=== PATIENT | female | born 1960 | race Caucasian/White ===

== ENCOUNTER → 2017-08-12 16:40 | Outpatient (CLI) | payer BC, SELFPAY ==
--- NOTE | 2017-08-12 16:47 | RAD_ITS ---
XR Spine Cervical 4 or 5 Views INDICATION: No known injury. Pain in entire neck for a few weeks down into both shoulders. COMPARISON: None TECHNIQUE: 5 views of the cervical spine FINDINGS: There is mild straightening of the cervical spine which could be positional. Height of the vertebral bodies is preserved. Disc space at the C5-6 level appears decreased. Neuroforamina appear patent. Prevertebral soft tissue stripe is within normal limits. There is normal alignment at the atlantoaxial articulation. RAD/Cerv Spine 4 or 5 Views IMPRESSION: Findings suggestive of mild degenerative disc disease at C5-C6. Consider further evaluation with MRI if clinical symptoms persist. at 2156 Reported and signed by: Alycia Mchugh MD Electronically Signed: Alycia Mchugh MD at 21:55 EDT Tel , Service support ,
== END ==
LOC: MTRAD 16:45
PROVIDERS: Family Provider Family Medicine; PCP Family Medicine; Visit Provider Family Medicine
DX: S46.819A Strain of other muscles, fascia and tendons at shoulder and upper arm level, unspecified arm, initial encounter (principal); X58.XXXA Exposure to other specified factors, initial encounter; Y93.9 Activity, unspecified; Y92.9 Unspecified place or not applicable; Y99.9 Unspecified external cause status
CPT/HCPCS: 72050

== ENCOUNTER → 2018-05-27 17:51 | Outpatient (CLI) | payer BC, SELFPAY ==
[2018-05-27 17:53] LABS: Mucous, Urine 0 SEEN /hpf (<or=2+)
[2018-05-27 18:50] LABS: Color, Urine Yellow (Yellow); Glucose, Dipstick Normal (Normal); Ketone-Dipstick Negative (Negative); Leukocyte Esterase-Dipstick 500 /ul (Negative); Nitrite-Dipstick Negative (Negative); Occult Blood-Urine 25 /ul (Negative); Protein-Dipstick Negative (Negative); Urine Bilirubin Dipstick Negative (Negative); Urine Clarity Clear (Clear); Urine Urobilinogen Normal (Normal)
[2018-05-27 19:09] LABS: Bacteria RARE /hpf (None Seen); Red Blood Cells-Urine 0-5 SEEN /hpf (0-5); Squamous Epithelial Cells - UA 0-5 SEEN /hpf (5-10); White Blood Cells 5-10 SEEN /hpf (0-5)
== END ==
PROVIDERS: Family Provider Family Medicine; PCP Family Medicine; Referring Provider Nurse Practitioner Family; Visit Provider Nurse Practitioner Family
DX: R35.0 Frequency of micturition (principal)
CPT/HCPCS: 81001; 87077; 87086; 87088

== ENCOUNTER → 2018-06-14 10:13 | Outpatient (CLI) | payer BC, SELFPAY ==
--- NOTE | 2018-06-14 10:17 | RAD_ITS ---
STUDY: X-RAY - RIGHT KNEE REASON FOR EXAM: Female, 57 years old. Knee pain. Status post fall last month. TECHNIQUE: 3 view(s) of the knee. COMPARISON: None. FINDINGS: Normal visualized distal femur. Normal visualized proximal tibia and fibula. Normal proximal tibiofibular articulation. Normal medial femorotibial compartment. Normal lateral femorotibial compartment. Normal patellofemoral articulation. The soft tissue structures are unremarkable. RAD/Knee 3 Views IMPRESSION: Within normal limits x-ray examination of the knee. Electronically Signed: Jackelyn Wilcox MD at 16:52 EDT Tel , Service support ,
== END ==
LOC: MTRAD 10:16
PROVIDERS: Family Provider Family Medicine; PCP Family Medicine; Referring Provider Nurse Practitioner Family; Visit Provider Nurse Practitioner Family
DX: M25.561 Pain in right knee (principal)
CPT/HCPCS: 73562

== ENCOUNTER → 2018-06-18 10:08 | Outpatient (CLI) | payer BC, SELFPAY ==
[2018-06-18 10:51] LABS: Anion Gap 4 (5-15); BUN 12 mg/dL (7-18); BUN/Creat Ratio 16.9 RATIO (10-20); Calcium,Total 8.8 mg/dL (8.5-10.1); Chloride 106 mmol/L (98-107); Cholesterol 257 mg/dL (200); Creatinine, Serum 0.71 mg/dL (0.55-1.02); EST Glomerular Filtration Rate 91 mL/min (>60); Est Glom Filt Rate - Afr Amer 110 mL/min (>60); Glucose 92 mg/dL (74-106); High Density Lipoprotein 60 mg/dL; Potassium 4.1 mmol/L (3.5-5.1); Sodium Level 140 mmol/L (136-145); Triglycerides 102 mg/dL; Very Low Density Lipoprotein 20 mg/dL (5-40)
--- NOTE | 2018-06-18 11:13 | BI_ITS ---
MAMMOGRAPHY - BILATERAL SCREENING 3-D JAME SYNTHESIS REASON FOR EXAM: Female, 57 years old. Bilateral Screening 3-D tomosynthesis PERTINENT HISTORY: No significant family history. TECHNIQUE: 2-D mammograms and 3-D Jame synthesis of the breast (s) were performed. CAD was performed. COMPARISON: April 10, 2010 FINDINGS: The breast composition is heterogeneously dense that can obscure small breast masses. Scattered benign calcifications are seen. No dense spiculated masses or suspicious microcalcifications are identified. No architectural distortion is identified. There is no skin thickening or retraction. There has been no significant change since the prior study. BI/SCREENING MAMM (CAD), BILAT IMPRESSION: No mammographic signs of malignancy. Routine yearly mammograms recommended. ASSESSMENT CATEGORY: BIRADS Category 2: Benign. A letter regarding these results will be sent to the patient by the facility within 30 days. FOLLOW UP RECOMMENDATION: Yearly follow up mammogram recommended. (A) Approximately 10% of breast cancers are not detected by mammography. A normal mammogram should not delay biopsy of a clinically suspicious abnormality. Electronically Signed: Yobany Quiros MD at 17:37 EDT , Service support ,
== END ==
PROVIDERS: Family Provider Family Medicine; PCP Family Medicine; Referring Provider Nurse Practitioner Family; Visit Provider Nurse Practitioner Family
DX: Z12.31 Encounter for screening mammogram for malignant neoplasm of breast (principal); Z13.220 Encounter for screening for lipoid disorders
CPT/HCPCS: 36415; 77063; 77067; 80048; 80061

== ENCOUNTER → 2018-09-14 | Outpatient (CLI) | payer BC, SELFPAY | END | disposition home or self-care (01) | LOC: LABSPEC 15:16 | PROVIDERS: Referring Provider Family Medicine; Visit Provider Family Medicine | DX: R35.0 Frequency of micturition (principal) | CPT/HCPCS: 87077; 87086; 87088; 87186 ==

== ENCOUNTER → 2018-10-20 09:28 | Outpatient (CLI) | payer BC, SELFPAY ==
[2018-10-20 10:55] LABS: Cholesterol 180 mg/dL (200); High Density Lipoprotein 62 mg/dL; Triglycerides 76 mg/dL; Very Low Density Lipoprotein 15 mg/dL (5-40)
== END ==
PROVIDERS: Family Provider Family Medicine; PCP Family Medicine; Referring Provider Family Medicine; Visit Provider Family Medicine
DX: E78.5 Hyperlipidemia, unspecified (principal); R35.0 Frequency of micturition
CPT/HCPCS: 36415; 80061; 87077; 87086; 87088; 87186

== ENCOUNTER 2019-02-15 07:05 | Day surgery (SDC) | payer BC, SELFPAY ==
[2019-02-15 07:35] VITALS: BP 105/67; PULSE 77; RESP 18; TEMP 37.1; O2SAT 98; BMI 20.9
[2019-02-15] MEDS: Lactated Ringers 1,000 ML 100 ML IV (07:46)
[2019-02-15] MEDS: Vancomycin IV 1,000 MG/200 ML BAG 200 MG IV (07:52)
--- NOTE | 2019-02-15 09:00 | RAD_ITS ---
STUDY: X-RAY - PELVIS REASON FOR EXAM: Female, 58 years old. InterStim therapy. TECHNIQUE: One view of the pelvis was obtained. COMPARISON: None. FINDINGS: Intraoperative fluoroscopic imaging provided for InterStim therapy. RAD/Pelvis 1 or 2 Views IMPRESSION: Fluoroscopic services provided for InterStim therapy Electronically Signed: Jim Sharma, at 13:14 EST , Service support ,
[2019-02-15 10:14] VITALS: BP 105/67; BP 117/53; PULSE 88; RESP 16; TEMP 36.7; O2SAT 100
[2019-02-15 10:15] VITALS: BP 105/67; BP 107/57; PULSE 82; RESP 16; O2SAT 100
--- NOTE | 2019-02-15 10:19 | PCM.OPRPT ---
Problem List (1) Urinary urgency Status: Acute (2) Urinary frequency Status: Acute (3) Nocturia Status: Acute (4) Straining to void Status: Acute Report of Operation Date of Procedure: 02/15/19 Pre-Operative Diagnosis: uinary hesitancy, urgency and frequency Post-Operative Diagnosis: same Surgery/Procedure Performed:: Interstim Stage 1 Description of Surgical Findings:: good response on all 4 leads. lead is in the right side, pocket on right side Type of Anesthesia:: MAC Specimen's removed: none Estimated Blood Loss (mL): 5cc Description of Procedure: The patient is a 58-year-old female who underwent urodynamics and office cystoscopy in preparation for intervention for straining to void, urinary urgency and frequency, nocturia. After all testing was completed, options were discussed and she agreed to proceed with an InterStim stage I trial under anesthesia. Informed consent was obtained. Was taken to the operating room and placed in a prone position on the operating room table. Anesthesia monitored the head, neck, airway, IV access and vital signs throughout the case. Once anesthesia was appropriately administered she was prepped and draped in usual sterile fashion. Using fluoroscopic visualization the S3 foramen was identified and AP and lateral view. Local anesthetic was used and the needle was passed through the S3 foramen on the patient's right side. Good response was obtained with both giovani and toe flexion. The guidewire was passed and the needle removed. An incision was made around the guidewire. The dilator was then inserted followed by the lead. All 4 leads received good response with giovani and toe flexion. The lead was left in this position. It was then tunneled to a pocket site defined on the patient's right buttocks. The spot was infiltrated with lidocaine with epinephrine and an incision was made. The pocket was opened using Bovie cautery and blunt dissection. Hemostasis is obtained using Bovie cautery. The lead was then tunneled into the pocket site. It was clean and dried and inserted into the lead extension and secured using the torque wrench. The boot which had been applied was then closed with Prolene suture. The lead extension was then tunneled in a cephalad position. The incisions were closed using 3-0 interrupted Vicryl followed by 4-0 subcuticular Vicryl and then Dermabond. The lead extension was inserted into the temporary battery and this was all secured to the patient's back using Tegaderm followed by tape. There were no complications during the procedure. The patient was then awakened taken to the recovery room in good condition. Grafts/Implants Used: Interstim Lead and extension - Complications none - Admit VTE Documentation VTE Present on Admission: No VTE Mechan Device Prophylaxis: None VTE Pharm Prophylaxis ordered?: No Reason prophylaxis not ordered:: Treatment Not Indicated
--- NOTE | 2019-02-15 10:23 | DCINST_ITS ---
Discharge Diet: No Restrictions Discharge Activity: May not drive while taking narcotic pain medications., May Not Shower Call your doctor if you observe: Fever of 101 or Higher, Inability to urinate, Shortness of breath, Chest pain, Calf discomfort Allergies/Adverse Reactions: Allergies No Known Allergies Allergy (Verified 02/15/19 07:34) Medications to take at Discharge Aspirin 325 mg PO Q4H PRN PRN 05/11/14 Naproxen [Naprosyn] 500 mg PO PRN PRN 04/20/16 Atorvastatin Calcium [Lipitor] 20 mg PO QHS 02/09/19 Cephalexin [Keflex] 500 mg PO Q12 3 Days #6 cap 02/15/19 Oxycodone HCl/Acetaminophen [Percocet 5/325] 1 tab PO Q6H PRN PRN 7 Days #20 tab 02/15/19 The following prescriptions were given: Cephalexin [Keflex] 500 mg PO Q12 3 Days #6 cap Prescription Printed Oxycodone HCl/Acetaminophen [Percocet 5/325] 1 tab PO Q6H PRN PRN 7 Days #20 tab PRN Reason: Pain Prescription Printed Primary Care Physician: Tai Cabral MD [Primary Care Provider] - Test Results: Test results from this visit will be discussed in further detail at your follow- up appointment, if applicable. Please Follow Up With: Mary Kate Jose MD When: call office for appt Proposed Discharge Date: 02/15/19
[2019-02-15 10:30] VITALS: BP 105/67; BP 90/42; PULSE 69; RESP 16; O2SAT 94
[2019-02-15 10:42] VITALS: BP 105/67; BP 98/66; PULSE 63; RESP 16; TEMP 36.8; O2SAT 100
[2019-02-15 11:10] VITALS: BP 105/67
== END 2019-02-15 11:17 | disposition home or self-care (01) ==
LOC: SDC 07:09 → AC 07:09
PROVIDERS: Family Provider Family Medicine; PCP Family Medicine; Referring Provider Urology; Visit Provider Urology
PROC: (CPT 64581; principal; 2019-02-15 09:10)
DX: R39.15 Urgency of urination (principal); R35.0 Frequency of micturition; R35.1 Nocturia; R39.16 Straining to void; E78.00 Pure hypercholesterolemia, unspecified; K21.9 Gastro-esophageal reflux disease without esophagitis; Z79.899 Other long term (current) drug therapy; Z79.82 Long term (current) use of aspirin; F17.200 Nicotine dependence, unspecified, uncomplicated
CPT/HCPCS: 00630; 64581; 72170; 76000; J7120; C1778

== ENCOUNTER 2019-03-01 05:36 | Day surgery (SDC) | payer BC, SELFPAY ==
[2019-03-01 06:18] VITALS: BP 102/65; PULSE 74; RESP 15; TEMP 36; O2SAT 98; BMI 20.9
[2019-03-01] MEDS: Lactated Ringers 1,000 ML 100 ML IV (06:30)
[2019-03-01] MEDS: Vancomycin IV 1,000 MG/200 ML BAG 200 MG IV (06:31)
[2019-03-01 08:23] VITALS: BP 102/65; BP 93/65; PULSE 67; RESP 14; TEMP 36.6; O2SAT 98
[2019-03-01 08:26] VITALS: BP 102/65; BP 86/61; PULSE 62; RESP 14; O2SAT 100
--- NOTE | 2019-03-01 08:27 | DCINST_ITS ---
Discharge Diet: No Restrictions Discharge Activity: May not drive while taking narcotic pain medications., May Shower Call your doctor if your incision/area has: Continuous Slow Oozing, Sudden Increased Bleeding, Increased Redness, Foul Smelling Discharge Call your doctor if you observe: Fever of 101 or Higher, Inability to urinate, Shortness of breath, Chest pain, Calf discomfort, Uncontrolled pain Allergies/Adverse Reactions: Allergies No Known Allergies Allergy (Verified 03/01/19 06:17) Medications to take at Discharge Aspirin 325 mg PO Q4H PRN PRN 05/11/14 Naproxen [Naprosyn] 500 mg PO PRN PRN 04/20/16 Atorvastatin Calcium [Lipitor] 20 mg PO QHS 02/09/19 Primary Care Physician: Tai Cabral MD [Primary Care Provider] - Test Results: Test results from this visit will be discussed in further detail at your follow- up appointment, if applicable. Please Follow Up With: Mary Kate Jose MD When: 2 weeks, call for appt Proposed Discharge Date: 03/01/19
--- NOTE | 2019-03-01 08:29 | PCM.OPRPT ---
Problem List (1) Urinary urgency Status: Acute (2) Urinary frequency Status: Acute (3) Hesitancy of micturition Status: Acute (4) Nocturia Status: Acute (5) Straining to void Status: Acute Report of Operation Date of Procedure: 03/01/19 Pre-Operative Diagnosis: Urinary urgency, frequency, hesitancy, straining to void and nocturia Post-Operative Diagnosis: same Surgery/Procedure Performed:: Interstim Stage 2 Type of Anesthesia:: MAC Estimated Blood Loss (mL): 3cc Description of Procedure: Samanta is a 58-year-old female who underwent an InterStim stage I 2 weeks ago. She has had successful resolution of her urgency, frequency and difficulty with urinary hesitancy and straining to void. She now presents for implantation of her IPG. Informed consent was obtained. The patient was taken to the operating room and placed on the operating room table in a prone position. Anesthesia monitored the head, neck, airway, IV access and vital signs throughout the case. The patient was appropriately secured to the table and padded in dependent areas. The tape from her stage I was removed and the lead extension was grasped with hemostat and the temporary battery was cut. She was prepped and draped in usual sterile fashion. The pocket site was anesthetized with 1% lidocaine. The incision was opened and the boot was brought into the field. The Prolene sutures were cut and the boot was removed. The lead was removed from the lead extension using the torque wrench. The pocket site was enlarged using Bovie cautery and blunt dissection. Hemostasis was obtained. The lead was inserted into the IPG and screwed into position using the torque wrench. The IPG was then placed into the pocket site and tested for impedances. The incision was then closed using 3-0 interrupted Vicryl followed by 4-0 subcuticular Vicryl suturing. Dermabond was placed on the skin. The patient was then awakened and taken to the recovery room in good condition. There were no complications during the procedure. Grafts/Implants Used: Interstim IPG - Complications none - Admit VTE Documentation VTE Present on Admission: Yes VTE Mechan Device Prophylaxis: SCD's VTE Pharm Prophylaxis ordered?: No Reason prophylaxis not ordered:: Treatment Not Indicated
[2019-03-01 08:31] VITALS: BP 102/65; BP 93/62; PULSE 71; RESP 14; O2SAT 100
[2019-03-01 08:36] VITALS: BP 102/65; BP 93/55; PULSE 67; RESP 14; TEMP 36.4; O2SAT 100
[2019-03-01 09:54] VITALS: BP 102/65
== END 2019-03-01 09:57 | disposition home or self-care (01) ==
LOC: SDC 05:38 → AC 05:38
PROVIDERS: Family Provider Family Medicine; PCP Family Medicine; Referring Provider Urology; Visit Provider Urology
PROC: (CPT 64590; principal; 2019-03-01 07:20)
DX: R39.15 Urgency of urination (principal); F17.200 Nicotine dependence, unspecified, uncomplicated; R39.11 Hesitancy of micturition; R35.1 Nocturia; R39.16 Straining to void; R35.0 Frequency of micturition; E78.00 Pure hypercholesterolemia, unspecified; K21.9 Gastro-esophageal reflux disease without esophagitis; Z78.0 Asymptomatic menopausal state; Z79.82 Long term (current) use of aspirin; Z79.3 Long term (current) use of hormonal contraceptives; Z79.1 Long term (current) use of non-steroidal anti-inflammatories (NSAID); Z79.899 Other long term (current) drug therapy
CPT/HCPCS: 00300; 64590; J7120; C1767

== ENCOUNTER 2022-05-14 09:01 | Emergency (ER) | payer OTHER, SELFPAY ==
[2022-05-14 09:03] VITALS: BP 131/77; PULSE 81; RESP 16; TEMP 36.2; O2SAT 94; BMI 21.7
--- NOTE | 2022-05-14 09:17 | EDS_ITS ---
HPI History of Present Illness Chief Complaint: Shortness of Breath Informant: patient Onset/Context/Timing Onset: Days Context: gradual Timing: Intermittent Current Severity: Gone Maximum Severity: Mild Worsened by: Exertion and Coughing Relieved by: Nothing Associated Symptoms cough Chest Pain: Positive for Intermittent and Dull Narrative Narrative: [id number] female missing a past medical history. States since May 08 she has had intermittent episodes of shortness of breath primarily were occurring in the morning. However 2 nights ago she was coughing and felt short of breath at that time. Nonproductive cough. No fever or chills. No leg pain or swelling. Recently did travel back and forth from [place]. Denies any leg pain or swelling. No prior history of DVT or PE. No hemoptysis. No pleuritic chest pain. At times she gets some dull ache in her chest not really associated with exertion. She really denies any significant exertional chest pain or exertional dyspnea. She does have a fpc history of smoking about half pack a day for probably 40 years. Denies any history of COPD. Reactive history. PE Risk Factors: Negative for Cancer, OCP + Smoking + > 35, Prior DVT or PE, Recent immobilization or Recent surgery Prior similar symptoms: No Recent Illness/Hospitalization: No PFSH PFSH Medical History no medical history no medical history Home Medications aspirin 325 mg tablet 325 mg PO Q4H PRN PRN Pain 05/11/14 [History Last Taken 02/14/19] naproxen 500 mg tablet 500 mg PO PRN PRN Pain 04/20/16 [History Last Taken 02/14/19] atorvastatin 20 mg tablet 20 mg PO QHS 02/09/19 [History Last Taken 02/14/19] albuterol sulfate 90 mcg/actuation aerosol inhaler (ProAir HFA) 2 puff inhalation Q6H PRN shortness of breath or wheezing #6.7 grams 05/14/22 [Rx Last Taken Unknown] prednisone 20 mg tablet 40 mg PO DAILY 5 days #10 tabs 05/14/22 [Rx Last Taken Unknown] Allergy/AdvReac Type Severity Reaction Status Date / Time No Known Allergies Allergy Verified 05/14/22 09:02 Social History Smoking Status: Current every day smoker ROS ROS ED ROS Narrative Intermittent shortness of breath. Review of Systems ROS Unobtainable: Denies due to encephalopathy Constitutional Constitutional ED: Denies chills or fever(s) Eyes Eyes: Denies blurry vision ENT ENT ED: Denies ear pain Cardiovascular Cardiovascular: Denies chest pain, orthopnea or paroxysmal nocturnal dyspnea Respiratory/Chest Respiratory/Chest: Reports cough and dyspnea; Denies dyspnea on exertion, orthopnea or paroxysmal nocturnal dyspnea Gastrointestinal Gastrointestinal: Denies abdominal pain, constipation, diarrhea, melena, nausea or vomiting Genitourinary Genitourinary ED: Denies dysuria Musculoskeletal Musculoskeletal: Denies arthralgias Integumentary Denies abscess Neurologic Neurologic: Denies headache(s) Psychiatric Psychiatric: Denies anxiety Endocrine Endocrinology: Denies cold intolerance Hematologic/Lymphatic Hematologic/Lymphatic: Denies easy bleeding Allergic/Immunologic Allergic/Immunologic ED: Denies mouth swelling or tongue swelling EXAM Physical Exam Narrative Exam Narrative: 61-year-old female no acute distress. Vital signs stable afebrile. Clinically looks well. Pulse ox 94% on room air no hypoxia. H EENT exam unremarkable. Neck nontender no JVD no lymphadenopathy. Lungs clear to auscultation bilaterally. No rales rhonchi or wheezing. Equal symmetrical. Heart regular rhythm no murmur. Chest wall nontender. Abdomen soft nontender. Moving all 4 extremities. Calves are nontender without edema or cords. Equal symmetrical radial pulses. Neurologic exam is unremarkable. Const Vital Signs: 05/14/22 09:03 Temperature 97.2 F L Temperature Source Temporal Pulse Rate 81 Respiratory Rate 16 Blood Pressure 131/77 H Blood Pressure Mean 95 Pulse Ox 94 Oxygen Delivery Method Room Air Positive well nourished and well developed; Negative for obese, cachectic, contr actures or unkempt General Appearance ED: well developed and NAD; Negative for unkempt, cachectic, contractures or pallor Nutritional Appearance: Negative for cachectic or obese HEENT Reports moist mucous membranes atraumatic; Negative for trauma or tenderness Eyes PERRL and EOMs intact bilaterally General Eye ED: Negative for pale conjunctiva, scleral icterus or other Neck no lymphadenopathy, supple, no meningeal signs and no JVD General: Negative for tenderness Lymph Lymphatic: Negative for other Chest Wall Chest: Negative for other Resp normal respiratory effort and clear to auscultation bilaterally Effort and Inspection: Negative for pain with movement Auscultation: Negative for rales, rhonchi or wheezes Cardio regular rate, regular rhythm, S1 normal heart sound, S2 normal heart sound and no murmurs Rate: Negative for bradycardia or tachycardic Rhythm: Negative for abnormal rhythm GI non-tender, non-distended and no masses Inspection: Negative for other Auscultation: normoactive bowel sounds Palpation: soft; Negative for tender, guarding or hepatomegaly Back/Spine no CVA tenderness and normal to inspection General Back: Negative for CVA tenderness, tenderness or other Extremity normal to inspection General Extremety ED: Negative for edema or tenderness General Extremity: Negative for edema Neuro oriented x3, CN's II-XII intact bilaterally and no sensory deficits noted Sensorium / Orientation: alert, oriented to person, oriented to place and oriented to time; Negative for orientation impaired, confused, lethargic or stuporous Speech: speech normal Motor Exam: strength 5/5 throughout Psych mental status grossly normal Appearance: Negative for unkempt Attitude: No agitated Mood & Affect: Negative for depressed Thought Process: normal thought process Skin no wounds and skin turgor normal General Skin Exam: Negative for jaundice or pallor Lesions: no lesions Rashes: no rashes Trauma: Negative for abrasion or laceration MDM MDM MDM Narrative Medical decision making narrative: 61-year-old female intermittent shortness of breath for the last 6 days. Really no significant chest pain. She has no cardiac history or COPD but has a long- term history of smoking. She is never had a DVT or PE but did have recent travel to and from [place]. Clinically her exam is benign. She is having no wheezing. This could be secondary to pneumonia clinically however she is not coughing or if she had any fever. It does not appear to be bronchitis. Could be a PE but she has never had one. No signs of congestive heart failure. No signs of a pneumothorax. This could be underlying new onset COPD with her long- term smoking history. She undergo a cardiac work-up with a D-dimer. Currently she is not wheezing she does not need aerosols. I did review her old records and old labs. Repeat exam patient is doing well at 11 AM. Patient she and I went over her test they are unremarkable. I think this is secondary to underlying development of COPD from her long smoking history. She will be written for prednisone 40 mg a day for 5 days. She is already been on a lower dose of prednisone for the last 5 days. There is also an inhaler. She will follow-up with her primary care physician Dr. Lloyd Richter. Lab Data Attestation: I reviewed the patient's lab results. Lab results narrative: CBC shows a normal white count 7.2. H&H 13.3 and 41. Platelets 307. D-dimer is -0.31. Electrolytes unremarkable gap of 5. Normal BUN and creatinine. Glucose 109. Troponin is normal at 7. Chest x-ray shows chronic changes no acute process. Labs: Laboratory Results - last 24 hr 05/14/22 05/14/22 05/14/22 09:25 09:25 09:25 WBC 7.2 RBC 4.16 L Hgb 13.3 Hct 41.1 MCV 98.8 MCH 32.0 MCHC 32.4 RDW Std Deviation 45.8 H RDW Coeff of [place] 12.5 Plt Count 307 MPV 9.3 Immature Gran % (Auto) 0.300 Neut % (Auto) 79.6 H Lymph % (Auto) 16.9 L [place] % (Auto) 2.6 Eos % (Auto) 0.3 Baso % (Auto) 0.3 Absolute Neuts (auto) 5.8 Absolute Lymphs (auto) 1.22 Nucleated RBC % 0 D-Dimer Quant (PE/DVT) 0.31 Sodium 143 Potassium 3.6 Chloride 108 H Carbon Dioxide 30.0 Anion Gap 5 BUN 14 Creatinine 0.80 Estim Creat Clear Calc 70.01 Est GFR (MDRD) Af Amer 94 Est GFR (MDRD) Non-Af 78 BUN/Creatinine Ratio 17.5 Glucose 109 H Calcium 9.0 Troponin I High Sens 7 Radiography Chest X-Ray - ED: 1 View, Read by ED Physician, Read by Radiologist, Heart, Lungs, Mediastinum, Bony Structures, No Acute Disease and Chronic Changes Diagnostic Testing: Clinical Impression(s) from Imaging Studies Chest X-Ray 05/14/22 09:30 IMPRESSION: Hyperinflation. The lungs are clear. Electronically Signed: Jim Sharma MD at 10:16 EST , Chest x-ray, portable, single view interpreted both by myself and the radiologist as no acute abnormality. Normal cardiac silhouette. No infiltrate. Rhythm Strip Rhythm Strip: Sinus Rhythm Rate: 66 Ectopy: None EKG Initial EKG: Attestation: I personally reviewed and interpreted this EKG as follows: Interpretation: Sinus Rhythm and No Acute Injury Pattern Comments: Normal sinus rhythm rate of 66 no acute signs of AK or ischemia. No dysrhythmia. Unchanged from prior EKG from March 2016. Prior: Unchanged Discharge Plan Triage Chief Complaint: Shortness of Breath Other Complaint: Cough ED Provider: John Diaz Dx/Rx/DC Orders Clinical Impression: Acute dyspnea, COPD (chronic obstructive pulmonary disease) with emphysema Instructions: ED Dyspnea Prescriptions: New prednisone 20 mg tablet 40 mg PO DAILY 5 Days Qty: 10 0RF albuterol sulfate [ProAir HFA] 90 mcg/actuation HFA aerosol inhaler 2 puff inhalation Q6H PRN (Reason: shortness of breath or wheezing) Qty: 6.7 0RF No Action aspirin 325 MG tablet 325 mg PO Q4H PRN PRN (Reason: Pain) naproxen 500 MG tablet 500 mg PO PRN PRN (Reason: Pain) atorvastatin 20 MG tablet 20 mg PO QHS Primary Care Provider: Tai Cabral Referrals: Tai Cabral MD [Primary Care Provider] - 3-5 Days Activity Restrictions/Additional Instructions: Your blood work, EKG chest x-ray and test for a blood clot and heart attack were all normal. I think this is underlying lung disease from your smoking history. Absolutely long-term must stop smoking. Follow-up with your primary care physician they can do further tests on your lungs. Prednisone daily, 40 mg for the next 5 days. Inhaler as needed. Disposition Disposition: Home, Self Care
--- NOTE | 2022-05-14 09:30 | RAD_ITS ---
STUDY: X-RAY CHEST REASON FOR EXAM: Female, 61 years old. Chest pain TECHNIQUE: Single AP portable view of the chest. COMPARISON: Comparison is made with prior study dated 04/20/2016. FINDINGS: Hyperinflation. The lungs are clear. There is no demonstrated pleural abnormality. Normal size heart. Normal mediastinum and alyssa. Normal visualized pulmonary arteries. Normal visualized aortic arch and descending thoracic aorta. Normal visualized thoracic spine. Normal visualized ribs, clavicles, and shoulders. There is no demonstrated abnormality of the visualized soft tissue structures of the upper abdomen. RAD/Chest 1 View (Portable) IMPRESSION: Hyperinflation. The lungs are clear. Electronically Signed: Jim Sharma MD at 10:16 [facility] ,
[2022-05-14 09:31] LABS: Absolute Lymphocyte Count 1.22 X10^3/uL (0.83-4.51); Absolute Neutrophil Count 5.8 X10^3/uL (2.0-7.7); Basophil# 0.02 X10^3/uL; Basophil% 0.3 % (0-1); Eosinophil# 0.02 X10^3/uL; Eosinophils% 0.3 % (0-5); Hematocrit 41.1 % (37-47); Hemoglobin 13.3 g/dL (12.0-15.0); Lymphocyte # 1.22 X10^3/ul (0.83-4.51); Lymphocyte % 16.9 % (19-41); Mean Corp Hgb Conc 32.4 g/dL (32-36); Mean Corpuscular Volume 98.8 fL (81-99); Mean Platelet Vol. 9.3 fl (6.2-12.0); Monocyte# 0.19 X10^3/uL; Monocyte% 2.6 % (0-10); NRBC Flagged by Analyzer 0 % (0-5); Neutrophil # 5.76 X10^3/uL (2.7-7.7); Neutrophil % 79.6 % (47-70); Platelet Count 307 K/mm3 (150-450); RBC Distribution Width CV 12.5 % (11.6-14.6); RBC Distribution Width SD 45.8 fl (35.1-43.9); Red Blood Count 4.16 M/mm3 (4.2-5.4); White Blood Count 7.2 K/mm3 (4.4-11.0)
[2022-05-14 09:42] LABS: D-Dimer Quantitative (DVT/PE) 0.31 FEU/ug/m (0.27-0.49)
[2022-05-14 09:48] LABS: Anion Gap 5 (5-15); BUN 14 mg/dL (7-18); BUN/Creat Ratio 17.5 RATIO (10-20); Chloride 108 mmol/L (98-107); EST Glomerular Filtration Rate 78 mL/min (>60); Est Glom Filt Rate - Afr Amer 94 mL/min (>60); Estimated Creatinine Clearance 70.01 ml/min; Glucose 109 mg/dL (74-106); Potassium 3.6 mmol/L (3.5-5.1); Sodium Level 143 mmol/L (136-145); Troponin-I HS 7 pg/mL (3.0-54.0)
== END 2022-05-14 11:17 | disposition home or self-care (01) ==
PROVIDERS: Emergency Provider Emergency Medicine; PCP Family Medicine; Visit Provider Emergency Medicine
DX: J43.9 Emphysema, unspecified (principal); F17.200 Nicotine dependence, unspecified, uncomplicated; Z79.52 Long term (current) use of systemic steroids
CPT/HCPCS: 71045; 80048; 84484; 85025; 85379; 93005; 99284; A4216

== ENCOUNTER → 2022-07-23 | Outpatient (CLI) | payer OTHER, SELFPAY ==
[2022-07-23 10:33] LABS: Color, Urine Yellow (Yellow); Glucose, Dipstick Normal (Normal); Ketone-Dipstick Negative (Negative); Leukocyte Esterase-Dipstick 500 /ul (Negative); Nitrite-Dipstick Negative (Negative); Occult Blood-Urine 150 /ul (Negative); Protein-Dipstick 15 mg/dl (Negative); Specific Gravity, Urine 1.015 (1.002-1.030); Urine Bilirubin Dipstick Negative (Negative); Urine Clarity Clear (Clear); Urine Urobilinogen Normal (Normal)
[2022-07-23 10:36] LABS: Absolute Lymphocyte Count 1.92 X10^3/uL (0.83-4.51); Absolute Neutrophil Count 3.9 X10^3/uL (2.0-7.7); Basophil# 0.02 X10^3/uL; Basophil% 0.3 % (0-1); Eosinophil# 0.12 X10^3/uL; Eosinophils% 1.8 % (0-5); Hematocrit 38.5 % (37-47); Hemoglobin 13.1 g/dL (12.0-15.0); Lymphocyte # 1.92 X10^3/ul (0.83-4.51); Lymphocyte % 28.9 % (19-41); Mean Platelet Vol. 9.7 fl (6.2-12.0); Monocyte# 0.65 X10^3/uL; Monocyte% 9.8 % (0-10); NRBC Flagged by Analyzer 0 % (0-5); Neutrophil # 3.91 X10^3/uL (2.7-7.7); Neutrophil % 58.9 % (47-70); Platelet Count 273 K/mm3 (150-450); RBC Distribution Width CV 11.6 % (11.6-14.6); RBC Distribution Width SD 40.9 fl (35.1-43.9); Red Blood Count 3.97 M/mm3 (4.2-5.4); White Blood Count 6.6 K/mm3 (4.4-11.0)
[2022-07-23 11:03] LABS: Vitamin B12 194 pg/mL (211-911); Vitamin D,25 Hydroxy 13.9 ng/mL
[2022-07-23 11:18] LABS: ALB/GLOB Ratio 1.1 RATIO (0.9-2.4); AST(SGOT) 15 U/L (15-37); Alanine Aminotransfer ALT/SGPT 14 U/L (13-56); Albumin, Serum 3.7 g/dL (3.2-5.0); Alkaline Phosphatase 63 U/L (45-117); Anion Gap 6 (5-15); BUN 9 mg/dL (7-18); BUN/Creat Ratio 13.5 RATIO (10-20); Calcium,Total 8.5 mg/dL (8.5-10.1); Chloride 107 mmol/L (98-107); Cholesterol 211 mg/dL (200); Creatinine, Serum 0.67 mg/dL (0.55-1.02); EST Glomerular Filtration Rate 96 mL/min (>60); Est Glom Filt Rate - Afr Amer 116 mL/min (>60); Ferritin 103 ng/mL (8-252); Globulin 3.4 g/dL (2.2-4.2); Glucose 85 mg/dL (74-106); High Density Lipoprotein 63 mg/dL; Iron 33 ug/dL (50-170); Microalbumin,Random Urine 26.4 mg/L (NO RANGE EST.); Potassium 3.8 mmol/L (3.5-5.1); Protein, Total 7.1 g/dL (6.4-8.2); Sodium Level 137 mmol/L (136-145); Thyroid Stim Hormone (TSH) 0.61 uIU/mL (0.358-3.74); Triglycerides 114 mg/dL; Very Low Density Lipoprotein 23 mg/dL (5-40)
== END | disposition home or self-care (01) ==
LOC: MTLAB 08:59
PROVIDERS: PCP Family Medicine; Referring Provider Family Medicine; Visit Provider Family Medicine
DX: Z00.00 Encounter for general adult medical examination without abnormal findings (principal); R53.83 Other fatigue; E78.5 Hyperlipidemia, unspecified
CPT/HCPCS: 36415; 80053; 80061; 81002; 82043; 82306; 82533; 82607; 82728; 83540; 84443; 85025

== ENCOUNTER → 2022-07-25 | Outpatient (CLI) | payer OTHER, SELFPAY ==
[2022-07-25 16:45] LABS: Bacteria 0 SEEN /hpf (None Seen); Mucous, Urine 0 SEEN /hpf (<or=2+); Red Blood Cells-Urine 0 SEEN /hpf (0-5); Squamous Epithelial Cells - UA 0 SEEN /hpf (5-10); White Blood Cells 0 SEEN /hpf (0-5)
[2022-07-25 18:11] LABS: Color, Urine Yellow (Yellow); Glucose, Dipstick Normal (Normal); Ketone-Dipstick Negative (Negative); Leukocyte Esterase-Dipstick Negative /ul (Negative); Nitrite-Dipstick Negative (Negative); Occult Blood-Urine 10 /ul (Negative); Protein-Dipstick Negative (Negative); Specific Gravity, Urine 1.005 (1.002-1.030); Urine Bilirubin Dipstick Negative (Negative); Urine Clarity Clear (Clear); Urine Urobilinogen Normal (Normal); Urine pH 6.5 (5.0 - 8.0)
== END | disposition home or self-care (01) ==
LOC: LABSPEC 16:44
PROVIDERS: PCP Family Medicine; Visit Provider Family Medicine
DX: N39.0 Urinary tract infection, site not specified (principal)
CPT/HCPCS: 81001; 87086

== ENCOUNTER → 2022-08-08 | Outpatient (CLI) | payer OTHER, SELFPAY ==
--- NOTE | 2022-08-08 19:04 | CT_ITS ---
EXAM: CT CHEST WITHOUT INTRAVENOUS CONTRAST CLINICAL INDICATION: SMOKER TECHNIQUE: Helically acquired images were obtained of the chest without intravenous contrast. This CT exam was performed using one or more of the following dose reduction techniques: automated exposure control, adjustment of the mA and/or kV according to patient size, and/or use of iterative reconstruction technique. COMPARISON: No relevant prior studies available. FINDINGS: LUNGS AND PLEURAL SPACES: Mild emphysematous changes predominantly in the upper lobes. No effusion or pneumothorax. Triangular nodule with tethering to the anterior pleura in the right upper lobe measuring 3.5 mm. Series 2 image 77. Pleural-based nodule in the left lower lobe measuring 4.5 mm, series 2 image 171. HEART: Unremarkable. Heart size is normal. No pericardial effusion. No significant coronary artery calcifications. MEDIASTINUM: Unremarkable. No mediastinal or hilar adenopathy. Esophagus is unremarkable. No hiatal hernia. THYROID: Unremarkable. No thyroid lesions. BONES/JOINTS: Unremarkable. No suspicious lytic or blastic abnormality. VASCULATURE: Unremarkable. Thoracic aorta is non-dilated. CT/Low Dose CT Lung Screening IMPRESSION: 1. There are 2 small pulmonary nodules as detailed above. Lung-RADS score: 3 - Probably Benign. Recommend low-dose CT (LDCT) in 6 months. 2. Mild emphysematous changes predominantly in the upper lobes. Electronically Signed: James Omalley MD at 0:58 EDT ,
== END | disposition home or self-care (01) ==
LOC: CT 18:37
PROVIDERS: PCP Family Medicine; Referring Provider Family Medicine; Visit Provider Family Medicine
DX: F17.200 Nicotine dependence, unspecified, uncomplicated (principal)
CPT/HCPCS: 71271

== ENCOUNTER 2022-08-11 07:44 | Emergency (ER) | payer OTHER, SELFPAY ==
[2022-08-11 07:45] VITALS: BP 122/60; PULSE 66; RESP 16; TEMP 36.1; O2SAT 99; BMI 21.6
--- NOTE | 2022-08-11 08:05 | RAD_ITS ---
STUDY: X-RAY - RIGHT FOOT CLINICAL: Female, 61 years old. Right foot pain following a twisting injury overlying the lateral aspect. TECHNIQUE: 3 view(s) of the foot. COMPARISON: None. FINDINGS: Small plantar spur. Normal visualized subtalar, talonavicular, calcaneocuboid, tarsal and tarsometatarsal articulations. Normal metatarsi. Normal metatarsophalangeal joint of the great toe. Normal tibial and fibular sesamoid bones. Normal interphalangeal joint of the great toe. Normal phalanges of the great toe. Normal second through fifth metatarsophalangeal joints. Normal interphalangeal joints and phalanges of the lesser toes. Mild lateral soft tissue swelling. RAD/Foot min 3 Views IMPRESSION: Soft tissue swelling. No fracture is seen. Electronically Signed: Jim Sharma MD at 8:47 EDT ,
--- NOTE | 2022-08-11 09:06 | EDS_ITS ---
HPI History of Present Illness Chief Complaint: Lower Extremity Injury Narrative Narrative: 61-year-old female with right foot pain. She states that yesterday she went to stand up and her leg was asleep and she fell twisting her right foot. She does not complain of any ankle pain. She been ambulatory with antalgic gait. She has not take anything for pain yet. She is concerned she might of broken something. 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 Home Medications aspirin 325 mg tablet 325 mg PO Q4H PRN PRN Pain 05/11/14 [History Last Taken 02/14/19] naproxen 500 mg tablet 500 mg PO PRN PRN Pain 04/20/16 [History Last Taken 02/14/19] atorvastatin 20 mg tablet 20 mg PO QHS 02/09/19 [History Last Taken 02/14/19] albuterol sulfate 90 mcg/actuation aerosol inhaler (ProAir HFA) 2 puff inhalation Q6H PRN shortness of breath or wheezing #6.7 grams 05/14/22 [Rx Last Taken Unknown] prednisone 20 mg tablet 40 mg PO DAILY 5 days #10 tabs 05/14/22 [Rx Last Taken Unknown] Allergy/AdvReac Type Severity Reaction Status Date / Time No Known Allergies Allergy Verified 08/11/22 07:48 Social History Smoking Status: Current every day smoker tobacco type: cigarettes ROS ROS ED Constitutional Constitutional ED: Denies chills, fever(s) or sweats Eyes Eyes: Denies blurry vision or change in vision ENT ENT ED: Denies ear pain or sore throat Cardiovascular Cardiovascular: Denies chest pain, palpitations or racing heartbeat Respiratory/Chest Respiratory/Chest: Denies cough, dyspnea or sputum Gastrointestinal Gastrointestinal: Denies abdominal pain, constipation, diarrhea, nausea or vomiting Genitourinary Genitourinary ED: Denies dysuria, hematuria or urinary frequency Musculoskeletal Musculoskeletal: Reports other; Denies myalgias or neck pain Integumentary Denies abscess, Abrasions or rash Neurologic Neurologic: Denies headache(s), paresthesias or weakness Psychiatric Psychiatric: Denies anxiety, depression, suicidal ideation or suicidal thoughts Endocrine Endocrinology: Denies polydipsia or polyuria EXAM Physical Exam Const Vital Signs: 08/11/22 07:45 Temperature 96.9 F L Temperature Source Temporal Pulse Rate 66 Respiratory Rate 16 Blood Pressure 122/60 H Blood Pressure Mean 80 Pulse Ox 99 Oxygen Delivery Method Room Air Positive well nourished General Appearance ED: NAD Resp normal respiratory effort Cardio regular rate and regular rhythm Extremity Extremity Narrative: Tenderness to palpation over lateral aspect of right foot. No pain at the base of the fifth metatarsal. No obvious deformity. No navicular pain. Neurovascular intact discomfort at all 5 toes. There is an area of erythema and swelling noted over the lateral foot with about 2 cm and circular. MDM MDM MDM Narrative Medical decision making narrative: Patient presenting with right foot pain. She has a antalgic gait but she is able to ambulate. Patient medicated with ibuprofen 600 mg p.o. X-ray of the right foot on my interpretation is no acute fracture or subluxation. Patient informed of findings. Recommended ice, Tylenol, ibuprofen and alternating doses. Follow-up with PCP to ensure resolution. She was offered crutches but declined. Impression: 1. Right foot sprain Radiography Diagnostic Testing: Clinical Impression(s) from Imaging Studies Foot X-Ray 08/11/22 08:05 IMPRESSION: Soft tissue swelling. No fracture is seen. Electronically Signed: Jim Sharma MD at 8:47 EDT Reading Location ID and State: [address] [place] [address] , Service support , Discharge Plan Triage Chief Complaint: Lower Extremity Injury ED Provider: Rashard Gardner Dx/Rx/DC Orders Instructions: ED Foot Sprain Prescriptions: No Action aspirin 325 MG tablet 325 mg PO Q4H PRN PRN (Reason: Pain) naproxen 500 MG tablet 500 mg PO PRN PRN (Reason: Pain) atorvastatin 20 MG tablet 20 mg PO QHS prednisone 20 mg tablet 40 mg PO DAILY 5 Days Qty: 10 0RF albuterol sulfate [ProAir HFA] 90 mcg/actuation HFA aerosol inhaler 2 puff inhalation Q6H PRN (Reason: shortness of breath or wheezing) Qty: 6.7 0RF Primary Care Provider: Tai Cabral Referrals: Tai Cabral MD [Primary Care Provider] - Disposition Disposition: Home, Self Care
[2022-08-11] MEDS: Ibuprofen 600 MG Tablet PO (09:09)
== END 2022-08-11 09:19 | disposition home or self-care (01) ==
PROVIDERS: Emergency Provider Student in an Organized Health Care Education/Training Program; PCP Family Medicine; Visit Provider Student in an Organized Health Care Education/Training Program
DX: S93.601A Unspecified sprain of right foot, initial encounter (principal); X50.1XXA Overexertion from prolonged static or awkward postures, initial encounter; W19.XXXA Unspecified fall, initial encounter; F17.210 Nicotine dependence, cigarettes, uncomplicated; Z79.82 Long term (current) use of aspirin; Z79.52 Long term (current) use of systemic steroids
CPT/HCPCS: 73630; 99284

== ENCOUNTER → 2022-08-12 | Outpatient (CLI) | payer OTHER, SELFPAY ==
--- NOTE | 2022-08-12 15:41 | BD_ITS ---
STUDY: DUAL ENERGY X-RAY ABSORPTIOMETRY / DXA REASON FOR EXAM: Female, 61 years old. Z138.20 -- SCREENING TECHNIQUE: Bone Mineral Density (BMD) measurements of lumbar spine and bilateral hips were obtained. COMPARISON: None. FINDINGS: Lumbar Spine (L1-L4): g/cm2 (0.992) / T-score (-0.5) / Z-score (1.0) Findings are suggestive of normal bone density with a low fracture risk. Left Femur Total: g/cm2 (0.791) / T-score (-1.2) / Z-score (-0.2) Left Femoral Neck: g/cm2 (0.671) / T-score (-1.6) / Z-score (-0.3) Right Femur Total: g/cm2 (0.792) / T-score (-1.2) / Z-score (-0.2) Right Femoral Neck: g/cm2 (0.645) / T-score (-1.8) / Z-score (-0.5) BD/Dexa Bone Density Study IMPRESSION: The patient is considered osteopenic as outlined below according to World Michael Organization (WHO) criteria with a moderate fracture risk. Reference Information: The T-score is the number of standard deviations above or below the standard which is normal for young adults at their peak bone mineral density. The World Health Organization (WHO) interprets the T-scores as follows: Above -1 Normal bone density Between -1 and -2.5 Osteopenia Equal to / or below -2.5 Osteoporosis As a practical clinical guideline, osteopenia may be graded as follows: Mild -1 through -1.5 Moderate -1.6 through -2.0 Severe -2.1 through -2.4 The Z-score is the number of standard deviations above or below age-matched controls. A Z-score of less than -1.5 would be considered abnormal. References: 1. NIH Osteoporosis and Related Bone Diseases www osteo.org 2. International Society for Clinical Densitometry www iscd.org 3. National Osteoporosis Foundation www nof.org Electronically Signed: Jim Sharma MD at 14:57 EDT ,
--- NOTE | 2022-08-12 15:52 | BI_ITS ---
MAMMOGRAPHY - BILATERAL SCREENING REASON FOR EXAM: Female, 61 years old. Routine annual screening examination. PERTINENT HISTORY: Non-contributory. TECHNIQUE: Digital bilateral breast jame (3D mammographic acquisition) in the CC and MLO projections. 2-D mediolateral oblique (MLO) and craniocaudad (CC) views of both breasts were obtained. CAD: Full Field Digital Mammography with Computer Added Detection was performed. COMPARISON: Comparison is made with prior study of June 18, 2018 and April 10, 2010. FINDINGS: Breast Composition: The breasts are extremely dense, which lowers the sensitivity of mammography. There are no dominant masses or suspicious calcifications. No other significant abnormalities are identified. There has been no significant change since the prior study. BI/SCRN MAMM (CAD)W/JAME BILAT IMPRESSION: Stable bilateral screening mammogram. Yearly follow-up mammogram recommended. (A) ASSESSMENT CATEGORY: BIRADS Category 2: Benign. A letter regarding these results will be sent to the patient by the facility within 30 days. Approximately 10% of breast cancers are not detected by mammography. A normal mammogram should not delay biopsy of a clinically suspicious abnormality. [id number] Electronically Signed: Jim Sharma MD at 8:46 EDT ,
== END | disposition home or self-care (01) ==
PROVIDERS: PCP Family Medicine; Referring Provider Family Medicine; Visit Provider Family Medicine
DX: Z12.31 Encounter for screening mammogram for malignant neoplasm of breast (principal); Z13.820 Encounter for screening for osteoporosis; M85.80 Other specified disorders of bone density and structure, unspecified site
CPT/HCPCS: 77063; 77067; 77080

== ENCOUNTER 2022-10-16 08:15 | Day surgery (SDC) | payer OTHER, SELFPAY ==
[2022-10-16] VITALS (8 sets, daily range): BP systolic 99–113; BP diastolic 46–92; PULSE 68–89; RESP 16–18; TEMP 36.1–36.5; O2SAT 96–100; BMI 21.7
[2022-10-16] MEDS: Lactated Ringers 1,000 ML 15 ML IV (08:58)
[2022-10-16] MEDS: Vancomycin IV 1,000 MG/200 ML BAG 200 MG IV (08:59)
--- NOTE | 2022-10-16 09:08 | PCM.HP.STD ---
[facility] - General General Date of Service: 10/16/22 Chief Complaint: Urinary retention HPI Narrative EMANI RUIZ, is a 62 F who has had an InterStim for years secondary to a diagnosis of urinary retention. She has had successful management of her condition with this implant. The battery has and she now presents for removal of InterStim lead and battery with placement of Axonics lead and battery. She has been having difficulty emptying since the battery has . She denies urinary incontinence but does have urgency, frequency and nocturia without the unit working. 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 Wears glasses Home Medications aspirin 325 mg tablet 325 mg PO Q4H PRN PRN Pain 05/11/14 [History Last Taken 02/14/19] albuterol sulfate 90 mcg/actuation aerosol inhaler (ProAir HFA) 2 puff inhalation Q6H PRN shortness of breath or wheezing #6.7 grams 05/14/22 [Rx Last Taken Unknown] calcium 600 mg capsule 1,200 mg PO DAILY 10/09/22 [History Last Taken Unknown] cholecalciferol (vitamin D3) 1,250 mcg (50,000 unit) capsule 1,250 mcg PO QWEEK 10/09/22 [History Last Taken Unknown] Allergy/AdvReac Type Severity Reaction Status Date / Time No Known Allergies Allergy Verified 10/09/22 13:07 Surgical History (Updated 10/09/22 @ 13:19 by Steph Templeton) Hx of surgical procedure Hx of surgical procedure Hx of tooth extraction Social History Smoking Status: Current every day smoker tobacco type: cigarettes ROS Constitutional Constitutional: Reports systems reviewed and no addt'l complaints, except as documented Eyes Eyes: Reports systems reviewed and no addt'l complaints, except as documented ENT HEENT: Reports systems reviewed and no addt'l complaints, except as documented Cardiovascular Cardiovascular: Denies chest pain, dyspnea, nausea, rapid heart rate or vomiting Respiratory/Chest Respiratory/Chest: Denies cough or dyspnea Gastrointestinal Gastrointestinal: Denies nausea or vomiting Genitourinary Genitourinary: Reports nocturia, urinary frequency, urinary hesitancy and urinary urgency Musculoskeletal Musculoskeletal: Reports systems reviewed and no addt'l complaints, except as documented Integumentary Integumentary: Reports systems reviewed and no addt'l complaints, except as documented Neurologic Neurologic: Reports systems reviewed and no addt'l complaints, except as documented Psychiatric Psychiatric: Reports systems reviewed and no addt'l complaints, except as documented Endocrine Endocrinology: Reports systems reviewed and no addt'l complaints, except as documented Hematologic/Lymphatic Hematologic/Lymphatic: Reports systems reviewed and no addt'l complaints, except as documented Allergic/Immunologic Allergic/Immunologic: Reports systems reviewed and no addt'l complaints, except as documented Vital Signs Vital Signs Vital Signs: 10/16/22 08:41 10/16/22 08:41 Temperature 97.7 F L Temperature Source Temporal Pulse Rate 68 Respiratory Rate 16 Respiratory Pattern Normal Blood Pressure 105/50 L Blood Pressure Mean 68 Blood Pressure Source Monitor Blood Pressure Position Semi-Fowlers Blood Pressure Location Left Arm Pulse Ox 96 Oxygen Delivery Method Room Air Weight Weight: 61.2 kg Body Mass Index (BMI) 21.7 Physical Exam Const alert, oriented x3 and no apparent distress General Appearance: cooperative, comfortable and well kempt HEENT normocephalic, head/scalp atraumatic, hearing grossly normal bilaterally, external ears normal, external nose normal and moist oral mucous membranes Eyes General Eye: normal appearance of both eyes Neck supple General: normal visual inspection and trachea midline Lymph Lymphatic: no lymphedema noted Chest inspection of chest normal Resp normal respiratory effort, normal air movement and no retractions Effort and Inspection: able to speak in complete sentences and symmetric chest movement Cardio regular rate and regular rhythm GI soft to palpation and non-tender no CVA tenderness Back/Spine no CVA tenderness Extremity normal to inspection Skin no rashes or lesions noted, no wounds, skin turgor normal, no jaundice, no petechiae and no mottling Neuro oriented x3, CN's II-XII intact bilaterally and moves all extremities Psych mental status grossly normal, thought process normal, cooperative and affect normal Assessment & Plan Assessment/Plan (1) Straining to void: (2) Nocturia: (3) Hesitancy of micturition: (4) Urinary frequency: (5) Urinary urgency: PLAN: Plan Proceed with removal InterStim battery and lead and insertion of Axonics stage I and II Informed consent has been obtained We will plan to use the same side and pocket site
--- NOTE | 2022-10-16 09:32 | DCINST_ITS ---
Discharge Instructions Diet Discharge Diet: No restrictions Activity Discharge Activity: May Shower (Tomorrow) May resume sexual activity in: 1 week Dressing / Incision Call your doctor if your incision/area has: Continuous Slow Oozing, Sudden Increased Bleeding, Increased Pain/ Swelling, Increased Redness, Foul Smelling Discharge and Swelling at the incision site Call your doctor if you observe: Fever of 101 or Higher, Inability to urinate and Inability to have a bowel movement Suture Line Care: Avoid Pulling/Pushing and Avoid Pinching/Bending Remove Dressing in: leave until fall off Follow Up Care Please Follow Up With: Mary Kate Jose MD When: The office will call the patient to make arrangements for follow-up Test Results: Test results from this visit will be discussed in further detail at your follow- up appointment, if applicable. Discharge Plan Admission Attending Provider: Mary Kate Jose Primary Care Provider: Tai Cabral Discharge Orders/Prescriptions Prescriptions: New oxycodone-acetaminophen [Percocet] 5-325 mg tablet 1 tab PO Q8H PRN (Reason: pain) 3 Days Qty: 10 0RF cephalexin [cephalexin] 500 mg capsule 500 mg PO Q12 3 Days Qty: 6 0RF Continued aspirin 325 MG tablet 325 mg PO Q4H PRN PRN (Reason: Pain) albuterol sulfate [ProAir HFA] 90 mcg/actuation HFA aerosol inhaler 2 puff inhalation Q6H PRN (Reason: shortness of breath or wheezing) Qty: 6.7 0RF cholecalciferol (vitamin D3) 1,250 mcg (50,000 unit) capsule 1,250 mcg PO QWEEK Patient Comments: TAKE 1 CAPSULE BY MOUTH weekly calcium 600 mg capsule 1,200 mg PO DAILY Referrals / Follow Up: Tai Cabral MD [Primary Care Provider] - Disposition Disposition (needs filled in before D/C Order can be placed): Home, Self Care
--- NOTE | 2022-10-16 09:40 | RAD_ITS ---
STUDY: X-RAY - PELVIS REASON FOR EXAM: Female, 62 years old. Placement of catheter into the right sacrum. Intraprocedural images. TECHNIQUE: 7 intraoperative digital documentation views were obtained. COMPARISON: None. FINDINGS: 7 intraoperative digital documentation views show stimulation catheter projected over the right sacrum. RAD/Pelvis 1 or 2 Views IMPRESSION: Intraoperative digital documentation views. Electronically Signed: Yobany Quiros MD at 12:19 EDT ,
[2022-10-16] MEDS: Lidocaine 1%/Epi 1:100 (30ml) 30 ML VIAL (09:57)
--- NOTE | 2022-10-16 13:32 | PCM.OPRPT ---
Report of Operation Date of Procedure: 10/16/22 Pre-Operative Diagnosis: Urinary urgency, urinary frequency, nocturia, straining to avoid Post-Operative Diagnosis: Same Surgery/Procedure Performed:: Removal InterStim lead and battery, Axonics stage I and II Surgeon: Mary Kate Jose Type of Anesthesia: MAC Description of Procedure: The patient is a 62-year-old female with an indwelling InterStim battery that has . She has been having more hesitancy, urgency and frequency along with nocturia. She desires to proceed with removal of her InterStim and insertion of an Axonics stage I and II. Informed consent has been obtained. The patient was taken to the operating room and placed on the operating room table in a prone position. She was appropriately secured and padded. Anesthesia monitored the head, neck, airway, IV access and vital signs throughout the case. Once anesthesia was appropriately administered, she was prepped and draped in usual sterile fashion. The skin overlying the pocket site and the lead insertion site were infiltrated with local anesthetic. They were visualized under fluoroscopy. Using a knife, the pocket site was opened down to the InterStim battery which was removed from the pocket without difficulty. The lead was cut and the battery was removed from the field. Using tension on the lead from the pocket site, the lead was identified and the insertion site, grasped with a hemostat and was removed in its entirety. Using fluoroscopic visualization, a needle was inserted into the same right side S3 foramen. Good stimulation was obtained. The guidewire was then inserted followed by the dilator. The lead was then placed and there was good stimulation found on 1, 2 and 3 with a smaller giovani response on lead 0. The decision was made to continue with this lead. It was tunneled into the existing pocket site which was irrigated for infection prevention. The lead was then dried and inserted into the new Axonics battery and secured using the torque wrench. The battery was placed into the existing pocket which was then closed with 3-0 Vicryl in interrupted fashion followed by 4-0 Monocryl subcuticular closure. The lead insertion site was closed in similar fashion. Skin glue was placed onto both incision sites and allowed to dry completely. The patient was then awakened and taken to the recovery room in good condition. There were no complications during this procedure. Grafts/Implants Used: Axonics lead and battery Complications None Admit VTE Documentation VTE Present on Admission: No VTE Pharm Prophylaxis ordered?: No Reason prophylaxis not ordered:: Treatment Not Indicated
== END 2022-10-16 11:20 | disposition home or self-care (01) ==
LOC: SDC 08:19 → AC 08:22
PROVIDERS: PCP Family Medicine; Referring Provider Urology; Visit Provider Urology
PROC: (CPT 64595; principal; 2022-10-16 09:45)
DX: Z45.42 Encounter for adjustment and management of neurostimulator (principal); R33.9 Retention of urine, unspecified; R35.0 Frequency of micturition; R39.11 Hesitancy of micturition; R39.15 Urgency of urination; R35.1 Nocturia; E78.00 Pure hypercholesterolemia, unspecified; F17.210 Nicotine dependence, cigarettes, uncomplicated; Z79.82 Long term (current) use of aspirin; Z79.899 Other long term (current) drug therapy
CPT/HCPCS: 64595; 64585; 64590; 64561; 72170; 76000; J7120; J2405

== ENCOUNTER → 2023-07-31 | Outpatient (CLI) | payer OTHER, SELFPAY ==
--- NOTE | 2023-07-31 12:04 | BI_ITS ---
MAMMOGRAPHY - BILATERAL SCREENING REASON FOR EXAM: Female, 62 years old. Routine annual screening examination. PERTINENT HISTORY: Non-contributory. TECHNIQUE: Digital bilateral breast jame (3D mammographic acquisition) in the CC and MLO projections. 2-D mediolateral oblique (MLO) and craniocaudad (CC) views of both breasts were obtained. CAD: Full Field Digital Mammography with Computer Added Detection was performed. COMPARISON: Comparison is made with prior study August 12, 2022 and June 18, 2018. FINDINGS: Breast Composition: The breasts are extremely dense, which lowers the sensitivity of mammography. There are no dominant masses or suspicious calcifications. No other significant abnormalities are identified. There has been no significant change since the prior study. BI/SCRN MAMM (CAD)W/JAME BILAT IMPRESSION: Stable bilateral screening mammogram. Yearly follow-up mammogram recommended. (A) ASSESSMENT CATEGORY: BIRADS Category 1: Negative. A letter regarding these results will be sent to the patient by the facility within 30 days. Approximately 10% of breast cancers are not detected by mammography. A normal mammogram should not delay biopsy of a clinically suspicious abnormality. [id number] Electronically Signed: Jim Sharma MD at 13:20 EDT ,
[2023-07-31 13:28] LABS: Hematocrit 40.6 % (37-47); Hemoglobin 13.2 g/dL (12.0-15.0); Mean Corp Hgb Conc 32.5 g/dL (32-36); Mean Corpuscular Hgb 30.8 pg (27.0-32.0); Mean Corpuscular Volume 94.9 fL (81-99); Mean Platelet Vol. 9.7 fl (6.2-12.0); Platelet Count 244 K/mm3 (150-450); RBC Distribution Width CV 12.1 % (11.6-14.6); RBC Distribution Width SD 42.5 fl (35.1-43.9); Red Blood Count 4.28 M/mm3 (4.2-5.4); White Blood Count 5.3 K/mm3 (4.4-11.0)
[2023-07-31 13:59] LABS: Vitamin B12 243 pg/mL (211-911); Vitamin D,25 Hydroxy 29.6 ng/mL
[2023-07-31 14:08] LABS: ALB/GLOB Ratio 1.3 RATIO (0.9-2.4); AST(SGOT) 15 U/L (15-37); Alanine Aminotransfer ALT/SGPT 14 U/L (13-56); Alkaline Phosphatase 63 U/L (45-117); Anion Gap 2 (5-15); BUN 10 mg/dL (7-18); BUN/Creat Ratio 14.2 RATIO (10-20); Calcium,Total 9.1 mg/dL (8.5-10.1); Chloride 106 mmol/L (98-107); Cholesterol 243 mg/dL (200); EST Glomerular Filtration Rate 89 mL/min (>60); Est Glom Filt Rate - Afr Amer 108 mL/min (>60); Ferritin 48 ng/mL (8-252); Globulin 3.1 g/dL (2.2-4.2); Glucose 91 mg/dL (74-106); High Density Lipoprotein 63 mg/dL; Iron 93 ug/dL (50-170); Potassium 3.8 mmol/L (3.5-5.1); Protein, Total 7.1 g/dL (6.4-8.2); Sodium Level 139 mmol/L (136-145); Thyroid Stim Hormone (TSH) 0.57 uIU/mL (0.358-3.74); Triglycerides 113 mg/dL; Very Low Density Lipoprotein 23 mg/dL (5-40)
== END | disposition home or self-care (01) ==
PROVIDERS: PCP Family Medicine; Referring Provider Family Medicine; Visit Provider Family Medicine
DX: Z12.31 Encounter for screening mammogram for malignant neoplasm of breast (principal); R53.83 Other fatigue; Z13.220 Encounter for screening for lipoid disorders; Z13.21 Encounter for screening for nutritional disorder
CPT/HCPCS: 36415; 77063; 77067; 80053; 80061; 82306; 82607; 82728; 83540; 84443; 85027

== ENCOUNTER → 2023-08-11 | Outpatient (CLI) | payer OTHER, SELFPAY ==
--- NOTE | 2023-08-11 18:32 | CT_ITS ---
STUDY: LOW DOSE CT LUNG CANCER SCREENING REASON FOR EXAM: Female, 62 years old. smoker RADIATION DOSAGE (If Supplied By Facility): CTDIvol = ( 2.01 ) mGy, DLP = ( 73.49 ) mGycm TECHNIQUE: No contrast was administered. Low dose technique was utilized (average mAS-38 and kVp 120). 1.25 mm axial source images with a slice interval of 1.25-mm were reconstructed in lung windows. 2.5 mm axial source images with a slice interval of 2.5-mm were reconstructed in lung windows. 5.0 mm axial source images with a slice interval of 5.0-mm were reconstructed in soft tissue windows. COMPARISON: None. Emphysema: Mild bilateral apical scarring. Mild emphysema. 4 mm noncalcified nodule in the periphery of the left lower lobe lungs on image 170 and follow-up CT is recommended in 12 months document stability. Endobronchial lesion: None Aorta: No thoracic aortic aneurysm. CORONARY ARTERIES: Coronary artery calcification is seen. Heart: No cardiomegaly. Pulmonary artery: Normal Mediastinal nodes: Normal Other chest and abdominal findings: None CT/Low Dose CT Lung Screening IMPRESSION: Lung-RADS category 2 - Continue annual screening with LDCT in 12 months. IMPORTANT NOTES FOR USE: ACR Lung-RADS Version 1.1 Assessment Categories Release Date: 2018 Category: Coded 0-4 bases on nodule(s) with highest degree of suspicion. Negative screen is defined as categories 1 and 2; a positive screen is defined as categories 3 and 4. Category 3 and 4A nodules that are unchanged on interval CT should be coded as category 2, and individuals returned to screening in 12 months. Category 4X: Category 3 or 4 nodules with additional imaging findings that increase the suspicion of lung cancer, such as spiculation, GGN that doubles in size in 1 year, enlarged lymph notes, etc. Category Modifiers: S (significant finding unrelated to lung cancer) Electronically Signed: Tyson Quarles MD at 22:17 EDT ,
== END | disposition home or self-care (01) ==
LOC: CT 18:29
PROVIDERS: PCP Family Medicine; Visit Provider Family Medicine
DX: J43.9 Emphysema, unspecified (principal); F17.200 Nicotine dependence, unspecified, uncomplicated
CPT/HCPCS: 71271

== ENCOUNTER 2023-08-31 21:12 | Emergency (ER) | payer OTHER, SELFPAY ==
[2023-08-31 21:13] VITALS: BP 120/66; PULSE 83; RESP 15; TEMP 36.7; O2SAT 96; BMI 21.1
--- NOTE | 2023-08-31 21:37 | EKG12_ITS ---
Test Reason : CP Blood Pressure : / mmHG Vent. Rate : 065 BPM Atrial Rate : 065 BPM P-R Int : 162 ms QRS Dur : 086 ms QT Int : 382 ms P-R-T Axes : 064 098 041 degrees QTc Int : 397 ms Normal sinus rhythm Rightward axis Borderline ECG Confirmed by MARY ROBLES, ZULEYKA ([id number]), supervising editor news reel MIRIAN JESSICA ([id number]) on 09/01/2023 2:11:55 PM Referred By: Confirmed By:ZULEYKA HERNANDEZ MD
--- NOTE | 2023-08-31 21:37 | RAD_ITS ---
STUDY: X-RAY CHEST REASON FOR EXAM: Female, 62 years old. chest pain TECHNIQUE: AP portable COMPARISON: May 14, 2022 FINDINGS: The lungs are clear and expanded. There is no demonstrated pleural abnormality. Normal size heart. Normal mediastinum and alyssa. Normal visualized pulmonary arteries. Normal visualized aortic arch and descending thoracic aorta. Normal visualized thoracic spine. Normal visualized ribs, clavicles, and shoulders. There is no demonstrated abnormality of the visualized soft tissue structures of the upper abdomen. No significant change since prior study RAD/Chest 1 View (Portable) IMPRESSION: Normal x-ray examination of the chest. Electronically Signed: Isaias Pa MD at 22:00 EDT ,
--- NOTE | 2023-08-31 21:37 | ED.VIS.CHEST ---
HPI History of Present Illness Chief Complaint: Chest Pain Narrative Narrative: 62-year-old female who denies significant past medical history except for being a smoker, and she has GERD, presents with left-sided chest pain that began this evening around 730. This was approximately 2 hours ago. She states she was helping out her daughter, but was not doing anything strenuous. She started feeling heaviness and pressure in the left side of her chest. She has felt like this before they told her it was GERD. She smokes 8 to 10 cigarettes a day. While she denies any nausea or vomiting, no shortness of breath or diaphoresis she may have felt lightheaded very briefly. Her symptoms are improving. She presents because of the chest pain that she had about 2 hours ago. 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 Home Medications ?Medication ?Instructions ?Recorded ?Last Taken ?Type aspirin 325 mg tablet 325 mg PO Q4H PRN PRN Pain 05/11/14 02/14/19 History albuterol sulfate 90 mcg/actuation 2 puff inhalation Q6H PRN 05/14/22 Unknown Rx aerosol inhaler (ProAir HFA) shortness of breath or wheezing #6.7 grams calcium 600 mg capsule 1,200 mg PO DAILY 10/09/22 Unknown History cholecalciferol (vitamin D3) 1,250 1,250 mcg PO QWEEK 10/09/22 Unknown History mcg (50,000 unit) capsule atorvastatin 20 mg tablet 20 mg PO DAILY 08/31/23 Unknown History cholecalciferol (vitamin D3) 50 50 mcg PO DAILY 08/31/23 Unknown History mcg (2,000 unit) tablet cyanocobalamin (vitamin B-12) 1,000 mcg PO DAILY 08/31/23 Unknown History 1,000 mcg tablet Allergy/AdvReac Type Severity Reaction Status Date / Time No Known Allergies Allergy Verified 08/31/23 21:14 Surgical History Hx of surgical procedure Hx of tooth extraction Hx of surgical procedure Social History (Updated 08/31/23 @ 21:58 by Tiny Lundberg) Smoking Status: Current every day smoker tobacco type: cigarettes ROS ROS ED ROS Narrative Constitutional: No fever, no chills. HEENT: No sore throat. No neck pain. No loss of vision. No rhinorrhea. Cardiovascular: Left-sided chest pain. No palpitations. No pedal edema. Respiratory: No cough, no shortness of breath. Abdominal: No abdominal pain. No nausea. No vomiting. Genitourinary: No dysuria. No hematuria. Musculoskeletal: No myalgias. No arthralgias. Neurologic: No headaches. No dizziness. Positive lightheadedness. Skin: No rash. No change in color. Psychiatric: No depression. No anxiety. EXAM Physical Exam Const Vital Signs: 08/31/23 21:13 08/31/23 21:57 08/31/23 22:16 Temperature 98.1 F Temperature Source Temporal Pulse Rate 83 78 Respiratory Rate 15 22 H Blood Pressure 120/66 114/43 L Blood Pressure Mean 84 66 Pulse Ox 96 98 Oxygen Delivery Method Room Air Room Air MDM MDM MDM Narrative Medical decision making narrative: In the differential diagnosis is ACS versus GERD versus pneumonia versus pneumothorax. History and physical does not really support pneumonia or pneumothorax. I have low suspicion for pulmonary embolism, and additionally she is PERC negative. EKG was obtained and interpreted by myself independently as normal sinus rhythm at 65 bpm without ectopy or acute ST changes. No STEMI. I reviewed her laboratory work and she has normal white count of 4.9, hemoglobin normal at 12.4, hematocrit 38.2, platelet count normal at 239. BMP is grossly unremarkable. This is with exception of anion gap which is low at 3. Glucose appropriately elevated at 104. Initial high-sensitivity troponin is 3. Chest x-ray 1 view interpreted by myself independently shows no evidence of pneumonia or pneumothorax. I reviewed the radiology report which confirms my independent interpretation. At this point in time, as her 2-hour troponin is pending, patient will be signed out to the overnight physician, Dr. Vishal Masterson who will check the repeat troponin. As long as she has a negative delta troponin, I feel she can be discharged to follow-up with her primary care provider. Disposition is pending second troponin. She is in stable condition. History & Record Review Discussion w/independent historian: Patient Lab Data Attestation: I reviewed the patient's lab results. Labs: Laboratory Results - last 24 hr 08/31/23 21:53 WBC 4.9 RBC 4.03 L Hgb 12.4 Hct 38.2 MCV 94.8 MCH 30.8 MCHC 32.5 RDW Std Deviation 41.7 RDW Coeff of [place] 11.9 Plt Count 239 MPV 9.0 Immature Gran % (Auto) 0.000 Neut % (Auto) 45.6 L Lymph % (Auto) 42.9 H [place] % (Auto) 7.8 Eos % (Auto) 3.1 Baso % (Auto) 0.6 Absolute Neuts (auto) 2.2 Absolute Lymphs (auto) 2.09 Nucleated RBC % 0 Sodium 140 Potassium 3.9 Chloride 107 Carbon Dioxide 30.0 Anion Gap 3 L BUN 18 Creatinine 0.98 Estim Creat Clear Calc 58.28 Est GFR (MDRD) Af Amer 74 Est GFR (MDRD) Non-Af 61 BUN/Creatinine Ratio 18.4 Glucose 104 Calcium 8.9 Troponin I High Sens 3 Radiography Diagnostic Testing: Clinical Impression(s) from Imaging Studies Chest X-Ray 08/31/23 21:37 IMPRESSION: Normal x-ray examination of the chest. Electronically Signed: Isaias Pa MD at 22:00 EDT Reading Location ID and State: [address] [place] [address] Tel , Service support , Discharge Plan Triage Chief Complaint: Chest Pain ED Provider: Riccardo Lindquist Dx/Rx/DC Orders Prescriptions: No Action aspirin 325 MG tablet 325 mg PO Q4H PRN PRN (Reason: Pain) albuterol sulfate [ProAir HFA] 90 mcg/actuation HFA aerosol inhaler 2 puff inhalation Q6H PRN (Reason: shortness of breath or wheezing) Qty: 6.7 0RF cholecalciferol (vitamin D3) 1,250 mcg (50,000 unit) capsule 1,250 mcg PO QWEEK Patient Comments: TAKE 1 CAPSULE BY MOUTH weekly calcium 600 mg capsule 1,200 mg PO DAILY atorvastatin 20 mg tablet 20 mg PO DAILY cyanocobalamin (vitamin B-12) 1,000 mcg tablet 1,000 mcg PO DAILY cholecalciferol (vitamin D3) 50 mcg (2,000 unit) tablet 50 mcg PO DAILY Primary Care Provider: Matheus Cabral Referrals: Matheus Cabral MD [Primary Care Provider] - Print Language: Lithuanian
[2023-08-31 21:57] VITALS: O2SAT 98
[2023-08-31 22:05] LABS: Absolute Lymphocyte Count 2.09 X10^3/uL (0.83-4.51); Absolute Neutrophil Count 2.2 X10^3/uL (2.0-7.7); Basophil# 0.03 X10^3/uL; Basophil% 0.6 % (0-1); Eosinophil# 0.15 X10^3/uL; Eosinophils% 3.1 % (0-5); Hematocrit 38.2 % (37-47); Hemoglobin 12.4 g/dL (12.0-15.0); Lymphocyte # 2.09 X10^3/ul (0.83-4.51); Lymphocyte % 42.9 % (19-41); Mean Corp Hgb Conc 32.5 g/dL (32-36); Mean Corpuscular Hgb 30.8 pg (27.0-32.0); Mean Corpuscular Volume 94.8 fL (81-99); Monocyte# 0.38 X10^3/uL; Monocyte% 7.8 % (0-10); NRBC Flagged by Analyzer 0 % (0-5); Neutrophil # 2.22 X10^3/uL (2.7-7.7); Neutrophil % 45.6 % (47-70); Platelet Count 239 K/mm3 (150-450); RBC Distribution Width CV 11.9 % (11.6-14.6); RBC Distribution Width SD 41.7 fl (35.1-43.9); Red Blood Count 4.03 M/mm3 (4.2-5.4); White Blood Count 4.9 K/mm3 (4.4-11.0)
[2023-08-31] MEDS: Aspirin 81 MG TAB.CHEW 324 MG PO (22:15)
[2023-08-31 22:16] VITALS: BP 114/43; PULSE 78; RESP 22
[2023-08-31 22:36] LABS: Anion Gap 3 (5-15); BUN 18 mg/dL (7-18); BUN/Creat Ratio 18.4 RATIO (10-20); Calcium,Total 8.9 mg/dL (8.5-10.1); Chloride 107 mmol/L (98-107); Creatinine, Serum 0.98 mg/dL (0.55-1.02); EST Glomerular Filtration Rate 61 mL/min (>60); Est Glom Filt Rate - Afr Amer 74 mL/min (>60); Estimated Creatinine Clearance 58.28 ml/min; Glucose 104 mg/dL (74-106); Potassium 3.9 mmol/L (3.5-5.1); Sodium Level 140 mmol/L (136-145); Troponin-I HS (w/2H Reflex) 3 pg/mL (3.0-54.0)
[2023-08-31 23:00] VITALS: BP 93/81; PULSE 69; RESP 16; O2SAT 96
[2023-08-31 23:56] LABS: Reflex Troponin-HS? (from REC) Y
[2023-09-01] VITALS: BP 123/73; PULSE 62; RESP 15
[2023-09-01 00:30] LABS: Troponin-I HS < 3 pg/mL (3.0-54.0)
[2023-09-01 01:16] VITALS: BP 122/72; PULSE 67; RESP 15; TEMP 36.7; O2SAT 99
== END 2023-09-01 01:22 | disposition home or self-care (01) ==
PROVIDERS: Emergency Provider Emergency Medicine; PCP Family Medicine; Visit Provider Emergency Medicine
DX: R07.89 Other chest pain (principal); F17.210 Nicotine dependence, cigarettes, uncomplicated; K21.9 Gastro-esophageal reflux disease without esophagitis; R42 Dizziness and giddiness; E78.00 Pure hypercholesterolemia, unspecified; Z79.899 Other long term (current) drug therapy; Z79.82 Long term (current) use of aspirin
CPT/HCPCS: 71045; 80048; 84484; 85025; 93005; 99284; A4216

== ENCOUNTER 2023-10-25 12:29 | Emergency (ER) | payer OTHER, SELFPAY ==
[2023-10-25 12:29] VITALS: BP 142/75; PULSE 97; RESP 18; TEMP 36.6; O2SAT 96; BMI 20.7
--- NOTE | 2023-10-25 12:45 | CT_ITS ---
STUDY: CT Abdomen And Pelvis W/ Contrast Injection 10/25/2023 2:27 PM REASON FOR EXAM: Female, 63 years old. Abdominal pain lower abdominal pain Individualized dose optimization techniques were used for this CT. COMPARISON: None. TECHNIQUE: CT Abdomen And Pelvis W/ Contrast Injection IV 100mL [id number] FINDINGS: The visualized portions of the heart are within normal limits. Normal liver. The gallbladder is contracted. Normal spleen. Normal pancreas. Normal bilateral adrenal glands. No acute findings of the right kidney. No acute findings of the left kidney. Focal wall thickening of the antrum of stomach. This can suggest a gastritis. Normal small intestine. There are multiple colonic diverticula consistent with diverticulosis. The appendix is visualized and appears normal. There are calcifications of the abdominal aorta. This is consistent for atherosclerotic disease. There is NO abdominal aortic aneurysm. Vascular workup can be obtained based on clinical correlation. Normal inferior vena cava. Subcentimeter mesenteric lymph nodes. Small calcifications overlying the left lower quadrant omentum. Normal urinary bladder. Normal visualized uterus. Normal abdominal wall. Normal osseous structures. CT/Abdomen/Pelvis W IV Cont ONLY IMPRESSION: (NOT LISTED IN ORDER OF SIGNIFICANCE) Gastritis. Other findings as above. Electronically Signed: James Meza MD at 14:32 EDT ,
--- NOTE | 2023-10-25 12:46 | EDS_ITS ---
HPI <LEONCIO Carrasquillo - Last Filed: 10/25/23 15:22> History of Present Illness Chief Complaint: Abd Pain Narrative Narrative: Patient is a 63-year-old female with history of COPD, bladder stimulator, cholesterol who presents to the emerged part with 3 days of lower abdominal pain, cramping. Patient states that this has been ongoing since , she states that the pain is there all the time and is gnawing however there are several incidents of severe lower abdominal pain. Denies any difficulty urinating, patient states she does have some bowel changes, she states she is more constipated. She denies any nausea or vomiting, denies any blood in her stool or vomit. Denies any fever or chills. Patient states that she is scheduled to get a colonoscopy however has never had 1. PFSH <LEONCIO Carrasquillo - Last Filed: 10/25/23 15:22> [facility] Medical History Wears glasses Post-menopausal Alcohol use High cholesterol Smoker History of pain when walking History of keloid of skin Tuberculin skin test positive Home Medications ?Medication ?Instructions ?Recorded ?Last Taken ?Type aspirin 325 mg tablet 325 mg PO Q4H PRN PRN Pain 05/11/14 02/14/19 History albuterol sulfate 90 mcg/actuation 2 puff inhalation Q6H PRN 05/14/22 Unknown Rx aerosol inhaler (ProAir HFA) shortness of breath or wheezing #6.7 grams calcium 600 mg capsule 1,200 mg PO DAILY 10/09/22 Unknown History cholecalciferol (vitamin D3) 1,250 1,250 mcg PO QWEEK 10/09/22 Unknown History mcg (50,000 unit) capsule atorvastatin 20 mg tablet 20 mg PO DAILY 08/31/23 Unknown History cholecalciferol (vitamin D3) 50 50 mcg PO DAILY 08/31/23 Unknown History mcg (2,000 unit) tablet cyanocobalamin (vitamin B-12) 1,000 mcg PO DAILY 08/31/23 Unknown History 1,000 mcg tablet omeprazole 40 mg capsule,delayed 40 mg PO DAILY #30 caps 10/25/23 Unknown Rx release Allergy/AdvReac Type Severity Reaction Status Date / Time No Known Allergies Allergy Verified 10/25/23 12:29 Surgical History Hx of surgical procedure Hx of tooth extraction Hx of surgical procedure Social History (Updated 08/31/23 @ 21:58 by Tiny Lundberg) Smoking Status: Current every day smoker tobacco type: cigarettes ROS <LEONCIO Carrasquillo - Last Filed: 10/25/23 15:22> ROS ED ROS Narrative Constitutional: Negative for fever, chills, weight loss, weakness Eyes: Negative for vision loss, vision change, double vision ENT: Negative for any sore throat, ear pain, congestion Cardiovascular: Negative for any chest pain, tightness, palpitations Respiratory: Negative for any cough, sputum production, hemoptysis, dyspnea, dyspnea on exertion, orthopnea Gastrointestinal: Negative for any nausea, vomiting, diarrhea, blood in stool, blood in vomit. Positive for abdominal pain, constipation : Negative for any urinary frequency, dysuria, retention, blood in urine Muscle skeletal: Negative for any neck pain, back pain Neurological: Negative for any headache, syncope, dizziness Skin: Negative for any rashes, itching, abrasions, lacerations Psychiatric: Negative for any depression, anxiety, stress, suicidal ideation, homicidal ideation Hematologic: Negative for any excessive bruising, easy bleeding EXAM <LEONCIO Carrasquillo - Last Filed: 10/25/23 15:22> Physical Exam Narrative Exam Narrative: Vital signs reviewed. HEET: Head normocephalic atraumatic, TMs clear bilaterally. Posterior pharynx is clear, moist mucous membranes. Nares clear bilaterally. Neck: Supple with no lymphadenopathy or tenderness. No signs of meningismus. Cardiac: Regular rate and rhythm no murmurs gallops or rubs, equal peripheral pulses bilaterally. Respiratory: Lungs clear to auscultation bilaterally. No chest tenderness. Abdomen: Soft, nondistended. No abdominal bruit or pulsatile masses. No hepatosplenomegaly. Patient slight tenderness to the left lower quadrant, no peritoneal signs. Active bowel sounds in all quadrants. Extremities: No peripheral edema, no signs of gross trauma or deformity. Active full range of motion of all extremities. Neuro: Cranial nerves II through XII intact, no focal neurological deficits. Skin: Clean dry and intact with no rash, purpura, petechiae, vesicles or pustules. Backs/flank: No CVA tenderness, no midline spinal tenderness, no deformity. Psych: Normal mood and affect. No SI, HI or acute psychosis. Const Vital Signs: 10/25/23 12:29 Temperature 98 F Temperature Source Temporal Pulse Rate 97 Respiratory Rate 18 Blood Pressure 142/75 H Blood Pressure Mean 97 Pulse Ox 96 Oxygen Delivery Method Room Air <Dr. Michael Bush DO - Last Filed: 10/25/23 15:38> Physical Exam Const Vital Signs: 10/25/23 12:29 Temperature 98 F Temperature Source Temporal Pulse Rate 97 Respiratory Rate 18 Blood Pressure 142/75 H Blood Pressure Mean 97 Pulse Ox 96 Oxygen Delivery Method Room Air MDM <LEONCIO Carrasquillo - Last Filed: 10/25/23 15:22> [facility] Lab Data Labs: Laboratory Results - last 24 hr 10/25/23 13:00 WBC 5.0 RBC 4.31 Hgb 13.1 Hct 40.6 MCV 94.2 MCH 30.4 MCHC 32.3 RDW Std Deviation 42.1 RDW Coeff of [place] 12.0 Plt Count 250 MPV 9.1 Immature Gran % (Auto) 0.400 Neut % (Auto) 56.7 Lymph % (Auto) 31.7 [place] % (Auto) 8.8 Eos % (Auto) 2.0 Baso % (Auto) 0.4 Absolute Neuts (auto) 2.9 Absolute Lymphs (auto) 1.59 Nucleated RBC % 0 Sodium 140 Potassium 3.8 Chloride 108 H Carbon Dioxide 31.0 Anion Gap 1 L BUN 10 Creatinine 0.73 Estim Creat Clear Calc 75.53 Est GFR (MDRD) Af Amer 104 Est GFR (MDRD) Non-Af 86 BUN/Creatinine Ratio 13.7 Glucose 100 Calcium 8.9 Total Bilirubin 0.30 AST 15 ALT 15 Alkaline Phosphatase 71 Total Protein 7.3 Albumin 3.6 Globulin 3.7 Albumin/Globulin Ratio 1.0 Lipase 50 Urine Color Yellow Urine Clarity Sl. Cloudy Urine pH 6.0 Ur Specific [place] 1.015 Urine Protein 15 H Urine Glucose (UA) Normal Urine Ketones Negative Urine Occult Blood 50 H Urine Nitrite Negative Urine Bilirubin Negative Urine Urobilinogen 1 H Ur Leukocyte Esterase 500 H Urine RBC 0 SEEN Urine WBC 0-5 SEEN Ur Squamous Epith Cells 0-5 SEEN Urine Bacteria 0 SEEN Urine Mucus 0 SEEN Radiography Diagnostic Testing: Clinical Impression(s) from Imaging Studies Abdomen/Pelvis CT 10/25/23 12:45 IMPRESSION: (NOT LISTED IN ORDER OF SIGNIFICANCE) Gastritis. Other findings as above. Electronically Signed: James Meza MD at 14:32 EDT , Treatment and Re-Evaluation :: Differential diagnosis includes however is not limited to: Mass, constipation, electrode abnormality, diverticulitis, colitis, viral syndrome Patient appears to be in no obvious distress vital signs are stable, nontoxic- appearing. Presenting to the emerged part with complaints of lower abdominal pain for the last 3 days. Patient will receive basic laboratory values including CBC CMP lipase, urinalysis. Patient given IV fluids, Toradol for pa in. CT scan of the abdomen pelvis IV contrast will be obtained. Patient will need to be reevaluated. All radiologic examinations were read, reviewed by the emergency department attending. From these reads, a plan of care will be put in place. Patient's laboratory values show a normal CBC, patient's chemistries were unremarkable, negative for any transaminitis, lipase was negative. Urinalysis was negative for any infection. There was 500 leukocytes however there was no bacteria, this will be sent for culture. Patient is currently not having any urinary symptoms. Patient CT scan of the abdomen pelvis shows gastritis, no other acute process. On reevaluation, patient was in no distress. Patient will be discharged home, abdominal pain uncertain etiology, patient does have history of gastritis, history of acid reflux. She replaced on omeprazole. She will follow-up with her PCP, given strict return precaution. Stable for discharge. <Dr. Michael Bush, DO - Last Filed: 10/25/23 15:38> [facility] History & Record Review Discussion w/independent historian: Patient Lab Data Attestation: I reviewed the patient's lab results. Labs: Laboratory Results - last 24 hr 10/25/23 13:00 WBC 5.0 RBC 4.31 Hgb 13.1 Hct 40.6 MCV 94.2 MCH 30.4 MCHC 32.3 RDW Std Deviation 42.1 RDW Coeff of [place] 12.0 Plt Count 250 MPV 9.1 Immature Gran % (Auto) 0.400 Neut % (Auto) 56.7 Lymph % (Auto) 31.7 [place] % (Auto) 8.8 Eos % (Auto) 2.0 Baso % (Auto) 0.4 Absolute Neuts (auto) 2.9 Absolute Lymphs (auto) 1.59 Nucleated RBC % 0 Sodium 140 Potassium 3.8 Chloride 108 H Carbon Dioxide 31.0 Anion Gap 1 L BUN 10 Creatinine 0.73 Estim Creat Clear Calc 75.53 Est GFR (MDRD) Af Amer 104 Est GFR (MDRD) Non-Af 86 BUN/Creatinine Ratio 13.7 Glucose 100 Calcium 8.9 Total Bilirubin 0.30 AST 15 ALT 15 Alkaline Phosphatase 71 Total Protein 7.3 Albumin 3.6 Globulin 3.7 Albumin/Globulin Ratio 1.0 Lipase 50 Urine Color Yellow Urine Clarity Sl. Cloudy Urine pH 6.0 Ur Specific [place] 1.015 Urine Protein 15 H Urine Glucose (UA) Normal Urine Ketones Negative Urine Occult Blood 50 H Urine Nitrite Negative Urine Bilirubin Negative Urine Urobilinogen 1 H Ur Leukocyte Esterase 500 H Urine RBC 0 SEEN Urine WBC 0-5 SEEN Ur Squamous Epith Cells 0-5 SEEN Urine Bacteria 0 SEEN Urine Mucus 0 SEEN Radiography Diagnostic Testing: Clinical Impression(s) from Imaging Studies Abdomen/Pelvis CT 10/25/23 12:45 IMPRESSION: (NOT LISTED IN ORDER OF SIGNIFICANCE) Gastritis. Other findings as above. Electronically Signed: James Meza MD at 14:32 EDT Reading Location ID and State: [facility] / [place] , Service support , Treatment and Re-Evaluation :: Differential diagnosis includes however is not limited to: Mass, constipation, electrode abnormality, diverticulitis, colitis, viral syndrome Patient appears to be in no obvious distress vital signs are stable, nontoxic-appearing. Presenting to the emerged part with complaints of lower abdominal pain for the last 3 days. Patient will receive basic laboratory values including CBC CMP lipase, urinalysis. Patient given IV fluids, Toradol for pain. CT scan of the abdomen pelvis IV contrast will be obtained. Patient will need to be reevaluated. All radiologic examinations were read, reviewed by the emergency department attending. From these reads, a plan of care will be put in place. Patient's laboratory values show a normal CBC, patient's chemistries were unremarkable, negative for any transaminitis, lipase was negative. Urinalysis was negative for any infection. There was 500 leukocytes however there was no bacteria, this will be sent for culture. Patient is currently not having any urinary symptoms. Patient CT scan of the abdomen pelvis shows gastritis, no other acute process. On reevaluation, patient was in no distress. Patient will be discharged home, abdominal pain uncertain etiology, patient does have history of gastritis, history of acid reflux. She replaced on omeprazole. She will follow-up with her PCP, given strict return precaution. Stable for discharge. I have personally performed a face to face assessment of the patient and have reviewed the KAMAR Note. I performed a substantive portion of the visit including all aspects of the following. My bennett findings include: History is 63-year-old female presenting with suprapubic discomfort for the past several days. Intermittent in nature but seems to becoming more constant. She denies urinary symptoms. No fever. She notes some intermittent constipation. She has a history of a bladder stimulator and follows with Dr. Jose. Exam is mild tenderness palpation the abdomen is still soft. Normal bowel sounds. No palpable masses. No guarding or rebound. Medical Decison Making: Basic blood work is normal. Urinalysis negative. CT of the abdomen pelvis shows some gastritis which the patient was complaining about at this time. We can write for some omeprazole. Would recommend primary care follow-up for persistent cellulitis Discharge Plan Triage Chief Complaint: Abd Pain ED Midlevel Provider: Chavo Gleason ED Provider: Michael Bush Dx/Rx/DC Orders Clinical Impression: Abdominal pain, Gastritis Instructions: Abdominal Pain, ED Gastritis (Adult) Prescriptions: New omeprazole 40 mg capsule,delayed release(DR/EC) 40 mg PO DAILY Qty: 30 0RF No Action aspirin 325 MG tablet 325 mg PO Q4H PRN PRN (Reason: Pain) albuterol sulfate [ProAir HFA] 90 mcg/actuation HFA aerosol inhaler 2 puff inhalation Q6H PRN (Reason: shortness of breath or wheezing) Qty: 6.7 0RF cholecalciferol (vitamin D3) 1,250 mcg (50,000 unit) capsule 1,250 mcg PO QWEEK Patient Comments: TAKE 1 CAPSULE BY MOUTH weekly calcium 600 mg capsule 1,200 mg PO DAILY atorvastatin 20 mg tablet 20 mg PO DAILY cyanocobalamin (vitamin B-12) 1,000 mcg tablet 1,000 mcg PO DAILY cholecalciferol (vitamin D3) 50 mcg (2,000 unit) tablet 50 mcg PO DAILY Primary Care Provider: Matheus Cabral Referrals: Matheus Cabral MD [Primary Care Provider] - Activity Restrictions/Additional Instructions: please follow-up outpatient. Print Language: Yakut Disposition Disposition: Home, Self Care
[2023-10-25] MEDS: 0.9% Normal Saline (1000mL) 1,000 ML 999 ML IV (13:02)
[2023-10-25] MEDS: Ketorolac 15 MG/ML Vial IV (13:02)
[2023-10-25 13:06] LABS: Bacteria 0 SEEN /hpf (None Seen); Mucous, Urine 0 SEEN /hpf (<or=2+); Red Blood Cells-Urine 0 SEEN /hpf (0-5)
[2023-10-25 13:12] LABS: Absolute Lymphocyte Count 1.59 X10^3/uL (0.83-4.51); Absolute Neutrophil Count 2.9 X10^3/uL (2.0-7.7); Basophil# 0.02 X10^3/uL; Basophil% 0.4 % (0-1); Hematocrit 40.6 % (37-47); Hemoglobin 13.1 g/dL (12.0-15.0); Lymphocyte # 1.59 X10^3/ul (0.83-4.51); Lymphocyte % 31.7 % (19-41); Mean Corp Hgb Conc 32.3 g/dL (32-36); Mean Corpuscular Hgb 30.4 pg (27.0-32.0); Mean Corpuscular Volume 94.2 fL (81-99); Mean Platelet Vol. 9.1 fl (6.2-12.0); Monocyte# 0.44 X10^3/uL; Monocyte% 8.8 % (0-10); NRBC Flagged by Analyzer 0 % (0-5); Neutrophil # 2.85 X10^3/uL (2.7-7.7); Neutrophil % 56.7 % (47-70); Platelet Count 250 K/mm3 (150-450); RBC Distribution Width SD 42.1 fl (35.1-43.9); Red Blood Count 4.31 M/mm3 (4.2-5.4)
[2023-10-25 13:14] LABS: Color, Urine Yellow (Yellow); Glucose, Dipstick Normal (Normal); Ketone-Dipstick Negative (Negative); Leukocyte Esterase-Dipstick 500 /ul (Negative); Nitrite-Dipstick Negative (Negative); Occult Blood-Urine 50 /ul (Negative); Protein-Dipstick 15 mg/dl (Negative); Specific Gravity, Urine 1.015 (1.002-1.030); Urine Bilirubin Dipstick Negative (Negative); Urine Clarity Sl. Cloudy (Clear); Urine Urobilinogen 1 mg/dl (Normal)
[2023-10-25 13:24] LABS: Squamous Epithelial Cells - UA 0-5 SEEN /hpf (5-10); White Blood Cells 0-5 SEEN /hpf (0-5)
[2023-10-25 13:30] LABS: AST(SGOT) 15 U/L (15-37); Alanine Aminotransfer ALT/SGPT 15 U/L (13-56); Albumin, Serum 3.6 g/dL (3.2-5.0); Alkaline Phosphatase 71 U/L (45-117); Anion Gap 1 (5-15); BUN 10 mg/dL (7-18); BUN/Creat Ratio 13.7 RATIO (10-20); Calcium,Total 8.9 mg/dL (8.5-10.1); Chloride 108 mmol/L (98-107); Creatinine, Serum 0.73 mg/dL (0.55-1.02); EST Glomerular Filtration Rate 86 mL/min (>60); Est Glom Filt Rate - Afr Amer 104 mL/min (>60); Estimated Creatinine Clearance 75.53 ml/min; Globulin 3.7 g/dL (2.2-4.2); Glucose 100 mg/dL (74-106); Lipase 50 U/L (13-75); Potassium 3.8 mmol/L (3.5-5.1); Protein, Total 7.3 g/dL (6.4-8.2); Sodium Level 140 mmol/L (136-145)
[2023-10-25] MEDS: Morphine 4 MG/ML Syringe IV (14:07)
[2023-10-25] MEDS: Ondansetron 4 MG/2 ML Vial IV (14:07)
[2023-10-25] MEDS: Mag /Aluminum/Simeth WCH UDC 30 ML ORAL.SUSP PO (15:03)
[2023-10-25] MEDS: Lidocaine 2% Viscous15 ML UDC 15 ML PO (15:03)
[2023-10-25 15:38] VITALS: BP 113/60; PULSE 89; RESP 18; TEMP 35.8; O2SAT 98
== END 2023-10-25 15:40 | disposition home or self-care (01) ==
PROVIDERS: Nurse Practitioner; Emergency Provider Emergency Medicine; PCP Family Medicine; Visit Provider Emergency Medicine
DX: K29.70 Gastritis, unspecified, without bleeding (principal); J44.9 Chronic obstructive pulmonary disease, unspecified; R10.30 Lower abdominal pain, unspecified; E78.00 Pure hypercholesterolemia, unspecified; F17.210 Nicotine dependence, cigarettes, uncomplicated; Z79.82 Long term (current) use of aspirin; Z79.899 Other long term (current) drug therapy
CPT/HCPCS: 74177; 80053; 81001; 83690; 85025; 87086; 87088; 96361; 96374; 96375; 99282; J7030; Q9967; A4216; J2405

== ENCOUNTER → 2023-12-14 | Outpatient (CLI) | payer OTHER, SELFPAY ==
[2023-12-14 10:55] LABS: Vitamin B12 775 pg/mL (211-911); Vitamin D,25 Hydroxy 59.5 ng/mL
[2023-12-14 11:09] LABS: Cholesterol 183 mg/dL (200); High Density Lipoprotein 63 mg/dL; Triglycerides 89 mg/dL; Very Low Density Lipoprotein 18 mg/dL (5-40)
== END | disposition home or self-care (01) ==
LOC: MFPLAB 08:28
PROVIDERS: PCP Family Medicine; Visit Provider Family Medicine
DX: E78.2 Mixed hyperlipidemia (principal)
CPT/HCPCS: 36415; 80061; 82306; 82607

== ENCOUNTER 2024-08-01 09:59 | Outpatient (CLI) | payer OTHER, SELFPAY ==
[2024-08-01 16:09] LABS: Hematocrit 39.3 % (37-47); Hemoglobin 12.8 g/dL (12.0-15.0); Mean Corp Hgb Conc 32.6 g/dL (32-36); Mean Corpuscular Hgb 30.7 pg (27.0-32.0); Mean Corpuscular Volume 94.2 fL (81-99); Mean Platelet Vol. 9.6 fl (6.2-12.0); Platelet Count 321 K/mm3 (150-450); RBC Distribution Width CV 12.1 % (11.6-14.6); RBC Distribution Width SD 41.9 fl (35.1-43.9); Red Blood Count 4.17 M/mm3 (4.2-5.4); White Blood Count 6.5 K/mm3 (4.4-11.0)
[2024-08-01 16:56] LABS: ALB/GLOB Ratio 1.4 RATIO (0.9-2.4); AST(SGOT) 22 U/L (<=31); Alanine Aminotransfer ALT/SGPT 14 U/L (<=34); Albumin, Serum 4.2 g/dL (3.4-4.8); Alkaline Phosphatase 74 U/L (35-104); Anion Gap 10 (5-15); BUN 13 mg/dL (4-19); Calcium,Total 9.2 mg/dL (7.6-11.0); Carbon Dioxide 26.1 mmol/L (21.0-32.0); Chloride 105 mmol/L (98-108); Cholesterol 159 mg/dL (<=200); Creatinine, Serum 0.68 mg/dL (0.70-1.20); EST Glomerular Filtration Rate 98 (>60); Globulin 2.9 g/dL (2.2-4.2); Glucose 90 mg/dL (70-99); High Density Lipoprotein 48 mg/dL; Low Density Lipoprotein Calc. 91 mg/dL; Potassium 4.1 mmol/L (3.3-5.1); Protein, Total 7.2 g/dL (5.9-8.4); Sodium Level 141 mmol/L (133-145); Total Bilirubin 0.24 mg/dL (0.00-1.30); Triglycerides 99 mg/dL; Very Low Density Lipoprotein 20 mg/dL (5-40); cholesterol:hdl ratio screen 3.31
[2024-08-01 17:41] LABS: Vitamin D,25 Hydroxy 52.7 ng/mL (30-100)
[2024-08-01 19:22] LABS: Vitamin B12 1261 pg/mL (180-914)
== END 2024-08-01 23:59 | disposition home or self-care (01) ==
LOC: MFPLAB 10:00
PROVIDERS: PCP Family Medicine; Referring Provider Family Medicine; Visit Provider Family Medicine
DX: E78.2 Mixed hyperlipidemia (principal); J43.9 Emphysema, unspecified; E55.9 Vitamin D deficiency, unspecified
CPT/HCPCS: 36415; 80053; 80061; 82306; 82607; 85027

== ENCOUNTER → 2024-09-01 | Outpatient (CLI) | payer OTHER, SELFPAY ==
--- NOTE | 2024-09-01 12:30 | BI_ITS ---
EXAM: SCRN MAMM (CAD)W/JAME BILAT DATE: 09/01/2024 CLINICAL HISTORY: F, Age 63 y/o , SCREENING BREAST CANCER RISK ASSESSMENT: Na TECHNIQUE: Bilateral screening digital breast tomosynthesis with 2D and 3D images. Computer aided detection. COMPARISON: Prior exam(s) were compared FINDINGS: TISSUE DENSITY: The breast tissue is extremely dense which lowers the sensitivity of mammography. Bilateral Breast Mammographic Findings: No suspicious masses, calcifications or other abnormalities are identified. BI/SCRN MAMM (CAD)W/JAME BILAT IMPRESSION: OVERALL FINAL ASSESSMENT: BIRADS 1 NEGATIVE RECOMMENDATION: Routine annual follow-up in 1 Year A letter with findings and recommendations will be mailed to the patient. Reading Location: [id number]
--- NOTE | 2024-09-01 12:30 | BD_ITS ---
PROCEDURE: DEXA BONE DENSITY STUDY 09/01/2024 REASON FOR EXAM: F, age 63 y/o . TECHNIQUE: DXA scan of sites with data reported below. Scanner utilized: [employer] W. REFERENCE LINKS: [facility] Adult Positions COMPARISON: DEXA scan on 08/12/2022 FINDINGS: BMD and T-SCORES Lumbar spine: 0.980 g/cm2, T-score -0.6 Levels: L1 through L4 Change from prior: No significant change in BMD.. Left femoral neck: 0.675 g/cm2, T-score -1.6 Femoral neck comparison data not recommended for monitoring change. Prior T-score -1.6 Left total hip: 0.794 g/cm2, T-score -1.2 Change from prior: No significant change in BMD.. Right femoral neck: 0.676 g/cm2, T-score -1.6 Femoral neck comparison data not recommended for monitoring change. Prior T-score -1.8 Right total hip: 0.783 g/cm2, T-score -1.3 Change from prior: No significant change in BMD. The World Health Organization has defined the following categories based on bone density: Normal bone density: T-score equal to or greater than -1.0 Osteopenia: T-score between -1.0 and -2.5 Osteoporosis: T-score equal to or less than -2.5 FRAX (or Comparable) Fracture Risk Assessment: 10 Year Probability of Fracture: Major Osteoporotic Fracture: 13% Hip Fracture: 2.5% (Note: FRAX is not to be reported in setting of normal range bone density, osteoporosis on DEXA, known history of osteoporosis, prior osteoporotic hip or vertebral fracture, or for any patient undergoing pharmacological treatment for bone loss.) The National Osteoporosis Foundation (NOF) recommends pharmacological treatment for patients with a FRAX 10-year risk of 3% or higher for a hip fracture, or 20% or higher for a major osteoporotic fracture, to prevent osteoporosis and reduce fracture risk. The patient does not meet the pharmacological treatment recommendations for prevention of osteoporosis. BD/Dexa Bone Density Study IMPRESSION: OSTEOPENIA. Reading Location: [id number]
--- NOTE | 2024-09-01 12:59 | CT_ITS ---
PROCEDURE: LOW DOSE CT LUNG SCREENING 09/01/2024 REASON FOR EXAM: SMOKER > 30 YEARS TECHNIQUE: Low Dose CT Lung screening without contrast. Coronal and Sagittal reconstruction series were provided. One or more dose reduction techniques were used (e.g., Automated exposure control, adjustment of the mA and/or kV according to patient size, use of iterative reconstruction technique). REFERENCE LINK: [employer] Lung-RADS COMPARISON: 08/11/2023 FINDINGS: Heart size is within normal limits. No significant pericardial effusion. Mild LAD coronary artery calcifications. Normal caliber thoracic aorta and pulmonary arteries. No bulky adenopathy. No acute findings in the visualized upper abdomen. Superficial soft tissues are within normal limits. Central airways are patent. Mild emphysema. No acute infiltrates, pleural effusion or pneumothorax. New 7 mm subsolid nodule in the periphery of the right lower lobe. New mild reticulonodular opacities in the posterior aspect of the right upper lobe. Stable small subpleural nodules in the right upper and left lower lobes measuring up to 5 mm. No acute osseous abnormality. CT/Low Dose CT Lung Screening IMPRESSION: 1. New subsolid nodule in the periphery of the right lower lobe measuring up to 7 mm. 2. Stable small subpleural nodules in the right upper and left lower lobes. 3. New mild reticulonodular opacities in the posterior right upper lobe, likely infectious/inflammatory. Attention on follow-up. 4. Emphysema and coronary artery disease. Coronary artery calcification (CAC) is mild Lung-RADS Category: 4A. Recommend three-month low-dose chest CT. Reading Location: [facility]
== END | disposition home or self-care (01) ==
LOC: OPBD 12:29
PROVIDERS: PCP Family Medicine; Referring Provider Family Medicine; Visit Provider Family Medicine
DX: Z13.820 Encounter for screening for osteoporosis (principal); Z12.31 Encounter for screening mammogram for malignant neoplasm of breast; Z12.2 Encounter for screening for malignant neoplasm of respiratory organs; Z87.891 Personal history of nicotine dependence
CPT/HCPCS: 71271; 77063; 77067; 77080

== ENCOUNTER → 2024-10-05 | Outpatient (CLI) | payer OTHER, SELFPAY ==
--- NOTE | 2024-10-05 10:10 | RAD_ITS ---
EXAM: XR Left Wrist Complete, 3 or More Views CLINICAL INDICATION: PAIN IN WRIST TECHNIQUE: Frontal, lateral and oblique views of the left wrist. COMPARISON: No relevant prior studies available. FINDINGS: BONES/JOINTS: Apparent widening of the scapholunate joint space may be secondary to projection versus ligamentous injury. Correlation with point tenderness is recommended. No acute fracture. No dislocation. SOFT TISSUES: Soft tissue swelling. No radiopaque foreign body. RAD/Wrist min 3 Views IMPRESSION: Apparent widening of the scapholunate joint space may be secondary to projectio n versus ligamentous injury. Correlation with point tenderness is recommended. Reading Location: [facility]
== END | disposition home or self-care (01) ==
LOC: MTRAD 10:08
PROVIDERS: PCP Family Medicine
DX: M25.532 Pain in left wrist (principal)
CPT/HCPCS: 73110